=== PATIENT | female | born 1985 | race Caucasian/White ===

== ENCOUNTER → 2023-11-11 09:41 | Outpatient (BNV) | payer BC, SELFPAY | PROVIDERS: PCP Physician Assistant; Referring Provider Physician Assistant; Visit Provider Internal Medicine Medical Oncology | DX: E83.110 Hereditary hemochromatosis (principal) | CPT/HCPCS: 99204; 99443 ==

== ENCOUNTER 2023-12-30 13:15 | Outpatient (REF) | payer BC, SELFPAY ==
[2023-12-30 15:31] LABS: Iron 123 mcg/dL (30-160); Percent Iron Saturation 62 % (15-50); Total Iron Binding Capacity 198 mcg/dL (228-428); Unsaturated Iron Binding 75 ug/dL
[2023-12-30 15:34] LABS: Ferritin 74 ng/mL (10-122)
== END 2023-12-30 13:16 | disposition home or self-care (01) ==
LOC: HO.BBR 13:15
PROVIDERS: Visit Provider Internal Medicine Medical Oncology
DX: E83.110 Hereditary hemochromatosis (principal)
CPT/HCPCS: 36415; 82728; 83540

== ENCOUNTER 2024-01-30 10:10 | Outpatient (REF) | payer BC, SELFPAY ==
[2024-01-30 12:23] LABS: Ferritin 36 ng/mL (10-122); Iron 229 mcg/dL (30-160); Percent Iron Saturation 90 % (15-50); Total Iron Binding Capacity 254 mcg/dL (228-428); Unsaturated Iron Binding < 25 ug/dL
== END 2024-01-30 10:11 | disposition home or self-care (01) ==
LOC: HO.BBR 10:10
PROVIDERS: PCP Physician Assistant; Visit Provider Internal Medicine Medical Oncology
DX: E83.110 Hereditary hemochromatosis (principal)
CPT/HCPCS: 36415; 82728; 83540

== ENCOUNTER 2024-02-25 13:59 | Outpatient (REF) | payer BC, SELFPAY ==
[2024-02-25 15:31] LABS: Iron 100 mcg/dL (30-160); Percent Iron Saturation 47 % (15-50); Total Iron Binding Capacity 212 mcg/dL (228-428); Unsaturated Iron Binding 112 ug/dL
[2024-02-25 15:45] LABS: Ferritin 33 ng/mL (10-122)
== END 2024-02-25 14:00 | disposition home or self-care (01) ==
LOC: HO.BBR 13:59
PROVIDERS: PCP Physician Assistant; Visit Provider Internal Medicine Medical Oncology
DX: E83.110 Hereditary hemochromatosis (principal)
CPT/HCPCS: 36415; 82728; 83540

== ENCOUNTER → 2024-04-15 14:22 | Outpatient (REF) | payer BC, SELFPAY ==
--- NOTE | 2024-04-15 14:24 | CA_ITS ---
Transthoracic Echocardiogram Patient (Last, First, Middle): Kristina Zuniga, Gender: Female Date of : 1985 Age: 38 Procedure Date: 04/15/2024 Procedure Type: Transthoracic Echocardiogram Location: OP Height: 152.4 cm Weight: 49.9 kg BSA: 1.45 m2 Heart Rate: bpm BP: 120 / 76 mmHg Superintendent Nonselling: TO Referring MD: Krish Banuelos MD Symptoms: Irregular heartbeat. Study Quality: Adequate ECG Rhythm: Sinus Conclusions: - The left ventricular systolic function is normal. The calculated ejection fraction is 64% by biplane method. - No obvious valvular pathology seen on this study. Findings Left Ventricle Normal left ventricular cavity size. There is normal left ventricular wall thickness. The left ventricular systolic function is normal. The calculated ejection fraction is 64% by biplane method. There is no evidence of regional wall motion abnormalities. Diastolic function is normal for age. LV peak GLS -20.3%; normal. Right Ventricle Normal right ventricular cavity size and systolic function. Atria Both atria are normal in size. Aortic Valve There is a normal trileaflet aortic valve. There is no aortic valve stenosis. There is no aortic valve regurgitation. Mitral Valve The mitral valve appears normal. There is no mitral valve regurgitation. There is no mitral valve stenosis. Pulmonic Valve The pulmonic valve is likely normal. Tricuspid Valve Normal tricuspid valve structure. There is trace tricuspid valve regurgitation. There is no evidence of pulmonary hypertension. Great Vessels The asc aorta is normal in size. Venous The inferior vena cava is normal in size and collapses greater than 50% with inspiration. Pericardium/Pleural There is a trivial pericardial effusion. Prior Study Comparison No prior study available for comparison. Recommendations, Care & Conclusions No obvious valvular pathology seen on this study. Measurements 2D Linear Measurements IVSd: 0.82 0.6-0.9/0.6-1.0 cm LVIDd: 4.06 3.9-5.3/4.2-5.9 cm LVIDd Index: 2.80 2.4-3.2/2.2-3.1 cm/m2 LVIDs: 2.54 2.0-3.6 cm LVPWd: 0.87 0.7-1.1 cm LA Diam: 3.10 2.7-3.8/3.0-4.0 cm LAIDs Index: 2.14 1.5-2.3 cm/m2 LV Mass: 128.53 67-162/88-224 g LV Mass Index: 88.64 43-95/49-115 g/m2 LVOT Diam: 2.00 3.0+(-)1.3 cm 2D Systolic Function EF 4C: 60.10 >55% EF 2C: 66.90 >55% EF BiP: 63.90 >55% Mitral Valve MV Pk E: 0.77 MV PK A: 0.39 MV Decel Time: 218.00 E/A: 2.00 E'Lateral: 10.90 E'Medial: 7.72 E/E' Med: 9.90 E/E' Lat: 7.00 PHT: 64.00 MVA PHT: 3.44 Decel [place]: 3.52 Aortic Valve AoV Pk Antoine: 1.15 AoV Mn Antoine: 0.82 AoV VTI: 0.24 AoV Pk Grad: 5.00 Aov Mn Grad: 3.00 SARAH Cont.VTI: 2.18 LVOT LVOT Pk Antoine: 0.82 LVOT Mn Antoine: 0.53 LVOT VTI: 0.17 LVOT Pk Grad: 3.00 LVOT Mn Grad: 1.00 LVOT Diam: 2.00 LVOT Area: 3.14 Diastolic Function MV Pk E: 0.77 MV Pk A: 0.39 E/A: 2.00 E'Medial: 7.72 E/E' Med: 9.90 E' Laterial: 10.90 E/E' Lat: 7.00 Right Ventricle TAPSE (mm): 22.60 TVS' Antoine: 11.20 Tricuspid Valve RA Press: 3.00 Great Vessels Aorta Sinus of Valsalva: 2.96 2.0-3.[address] [place]: 2.22 1.7-3.4 cm Ao Asc: 2.50 2.1-3.4 cm Updated in Other Vendor System with Status of Final Antione Carlson MD electronically signed on 04/16/2024 11:41:46 AM with status of Final
== END ==
LOC: HO.CARD 14:22
PROVIDERS: Visit Provider Internal Medicine Medical Oncology
DX: I49.9 Cardiac arrhythmia, unspecified (principal)
CPT/HCPCS: 93306; 93356

== ENCOUNTER → 2024-04-15 14:24 | Outpatient (BNV) | payer BC, SELFPAY | PROVIDERS: Visit Provider Internal Medicine | DX: R94.31 Abnormal electrocardiogram [ECG] [EKG] (principal) | CPT/HCPCS: 93306; 93356 ==

== ENCOUNTER 2024-04-21 14:54 | Outpatient (AMB) | payer BC, SELFPAY ==
[2024-04-21 14:57] VITALS: BP 110/72; PULSE 68; BMI 22.1
--- NOTE | 2024-04-21 14:57 | MHC.OFFVIS ---
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 She has been diagnosed with homozygous hemochromatosis. She has been started on therapeutic phlebotomy. However, there was concern for some palpitations/arrhythmia and hence she has been referred here. She states that she was told to have a cardiac murmur many years ago but nothing was ever evaluated. She had recent echocardiogram which was unremarkable. She feels a sensation of a momentary fluttering and then goes back to normal. Appears to be description for either supraventricular ventricular ectopy. Nothing sustained. Otherwise no documented cardiac issues in the past. No major limitations otherwise. [facility] Medical History (Updated 04/21/24 @ 15:21 by Antione Carlson MD) Hemochromatosis Family History (Updated 04/21/24 @ 15:02 by Ashley Docekry CMA) Paternal Grandmother Leukemia Maternal Grandfather Colon cancer Father Afib Spinal stenosis HTN (hypertension) Hyperlipidemia Mother Hypothyroid HTN (hypertension) Hyperlipidemia Social History (Updated 04/21/24 @ 15:02 by Ashley Dockery CMA) Household Members: Family Alcohol intake: current Comment: social Patient Tobacco Use Status: Never used Tobacco service: No Current occupational status: employed Review of Systems Const Denies chills, Denies daytime sleepiness, Denies fatigue, Denies fever(s), Denies poor appetite, Denies snoring, Denies stops breathing during sleep, Denies weakness, Denies weight gain and Denies weight loss Eyes Denies loss of vision ENT Denies dizziness and Denies hearing loss Card Denies chest pain, Denies irregular heart rhythm, Denies claudication, Denies leg edema, Denies lightheadedness, Denies palpitations, Denies dyspnea on exertion and Denies orthopnea Resp Denies cough, Denies excessive phlegm production, Denies dyspnea on exertion, Denies snoring and Denies wheezing GI Denies abdominal pain, Denies hematochezia, Denies change in bowel habits, Denies nausea and Denies vomiting Denies urinary frequency and Denies dysuria Musc Denies arthralgias, Denies muscle weakness, Denies numbness and Denies other Skin/Breast Denies nail changes and Denies rash Neuro Denies Abnormal speech present, Denies dizziness, Denies loss of vision, Denies memory loss, Denies numbness and Denies weakness Psych Denies depression and Denies memory loss Endo Denies fatigue and Denies palpitations Anthony/Lymph Denies easy bruising Aller/Immun Denies wheezing Physical Exam Vital Signs: Last Vital Signs Pulse 68 04/21/24 14:57 BP 110/72 04/21/24 14:57 BMI result Body Mass Index 22.1 Const General: comfortable and no acute distress Orientation/consciousness: patient oriented x3 HEENT Other: Unremarkable Head: Yes normal to inspection Neck Neck: Yes normal visual inspection Chest Chest palpation & inspection: normal inspection of the chest Resp Auscultation: clear to auscultation bilaterally Cardio Palpation: normal PMI Heart sounds: S1 normal heart sound present, S2 normal heart sound present, no gallops, no murmurs and no rubs GI Palpation (GI): Soft to palpation Back/Spine/Pelvis Other: unremarkable Skin General skin exam: no rashes or lesions noted Neuro General: patient oriented x3 Speech: No Abnormal speech present Extrem General: Yes normal to inspection Psych Mental Status: mental status grossly normal Office Procedures EKG Details: EKG with underlying sinus rhythm at 68/Min with sinus arrhythmias; rightward axis; no significant ST-T changes and otherwise unremarkable[place] [id number]-[id number], Complete Assessment & Plan Assessment & Plan (1) Palpitation: Code(s): R00.2 - Palpitations Category: Medical Plan Baseline EKG shows sinus rhythm and sinus arrhythmia. In the echocardiogram, normal LVEF, 64% with no wall motion abnormalities. Peak global longitudinal strain. No significant valvular findings. Overall, possible supraventricular/ventricular ectopy; doubt any other arrhythmias. We discussed pathophysiology of the above and natural course. We can do a Holter monitor for further evaluation. She agrees for a 14 day Holter. In fact, as she felt some palpitations few days after the therapeutic phlebotomy, she can actually wear this monitor during the procedure and after. Otherwise, may proceed with treatment as planned. We will follow-up after she completes the Holter. Orders: Orders ECG 14 day holter monitor Today R00.2 - Palpitations Coding Level of Care Code New Pt Level 3 (95304) Diagnoses Palpitation R00.2 CPT Codes EKG - CPT: 94681-[id number], Complete ([id number])
== END 2024-04-21 15:29 | disposition home or self-care (01) ==
PROVIDERS: PCP Physician Assistant; Visit Provider Internal Medicine
DX: R00.2 Palpitations (principal); I49.9 Cardiac arrhythmia, unspecified
CPT/HCPCS: 93010; 99213

== ENCOUNTER → 2024-04-21 14:54 | Outpatient (BNVA) | payer BC, SELFPAY | PROVIDERS: PCP Physician Assistant; Visit Provider Internal Medicine | DX: R00.2 Palpitations (principal) | CPT/HCPCS: 93005 ==

== ENCOUNTER 2024-04-23 11:23 | Outpatient (REF) | payer BC, SELFPAY ==
[2024-04-23 13:09] LABS: Iron 167 mcg/dL (30-160); Percent Iron Saturation 73 % (15-50); Total Iron Binding Capacity 229 mcg/dL (228-428); Unsaturated Iron Binding 62 ug/dL
[2024-04-23 13:22] LABS: Ferritin 15 ng/mL (10-122)
== END 2024-04-23 11:24 | disposition home or self-care (01) ==
LOC: HO.BBR 11:23
PROVIDERS: Visit Provider Internal Medicine Medical Oncology
DX: E83.110 Hereditary hemochromatosis (principal)
CPT/HCPCS: 36415; 82728; 83540

== ENCOUNTER 2024-05-25 13:14 | Outpatient (REF) | payer BC, SELFPAY ==
[2024-05-25 14:50] LABS: Iron 30 mcg/dL (30-160); Percent Iron Saturation 13 % (15-50); Total Iron Binding Capacity 233 mcg/dL (228-428); Unsaturated Iron Binding 203 ug/dL
[2024-05-25 15:05] LABS: Ferritin 6 ng/mL (10-122)
== END 2024-05-25 13:15 | disposition home or self-care (01) ==
LOC: HO.BBR 13:14
PROVIDERS: PCP Physician Assistant; Visit Provider Internal Medicine Medical Oncology
DX: E83.110 Hereditary hemochromatosis (principal)
CPT/HCPCS: 36415; 82728; 83540

== ENCOUNTER 2024-07-27 14:37 | Outpatient (REF) | payer BC, SELFPAY | END 2024-07-27 14:38 | disposition home or self-care (01) | LOC: HO.BBR 14:37 | PROVIDERS: PCP Physician Assistant; Visit Provider Internal Medicine Medical Oncology | DX: Z13.89 Encounter for screening for other disorder (principal) ==

== ENCOUNTER 2024-08-09 13:48 | Outpatient (REF) | payer BC, SELFPAY ==
[2024-08-09 14:09] LABS: MANUAL DIFF FLAG NO
[2024-08-09 14:10] LABS: Basophils Percent Auto 0.4 % (0-2); Eosinophils Absolute Auto 0.1 X10*3/uL (0.0-0.4); Eosinophils Percent Auto 1.2 % (0-4); Hematocrit 34.3 % (37.0-47.0); Hemoglobin 10.9 g/dl (12.0-16.0); Imm Gran Abs Auto 0.01 X10*3/uL (0.00-0.03); Imm Gran Pct Auto 0.2 % (0.0-0.4); Lymphocytes Absolute Auto 1.4 X10*3/uL (1.2-4.9); Lymphocytes Percent Auto 24.1 % (20-40); Mean Corpuscular HGB Conc 31.8 g/dl (31.0-35.0); Mean Corpuscular Hemoglobin 26.9 pg (27.0-33.0); Mean Corpuscular Volume 84.7 fL (80.0-98.0); Mean Platelet Volume 10.3 fL (9.4-12.3); Monocytes Absolute Auto 0.4 X10*3/uL (0.1-1.2); Monocytes Percent Auto 7.4 % (2-11); Neutrophils Absolute Auto 3.8 x10*3/uL (2.0-8.3); Neutrophils Percent Auto 66.7 % (45-73); Platelet Count 207 X10*3/uL (160-400); Red Blood Count 4.05 X10*6/uL (4.20-5.50); Red Cell Distribution Width 13.7 % (11.0-16.0); White Blood Count 5.6 X10*3/uL (4.8-10.8)
[2024-08-09 14:46] LABS: Iron 35 mcg/dL (30-160); Percent Iron Saturation 15 % (15-50); Total Iron Binding Capacity 229 mcg/dL (228-428); Unsaturated Iron Binding 194 ug/dL
[2024-08-09 14:59] LABS: Ferritin 7 ng/mL (10-250)
== END 2024-08-09 13:49 | disposition home or self-care (01) ==
LOC: HO.BBR 13:48
PROVIDERS: PCP Physician Assistant; Visit Provider Internal Medicine Medical Oncology
DX: E83.119 Hemochromatosis, unspecified (principal)
CPT/HCPCS: 36415; 82728; 83540; 85025

== ENCOUNTER 2024-09-03 13:05 | Outpatient (REF) | payer BC, SELFPAY ==
--- OUTSIDE RECORDS SUMMARY | 2024-09-03 14:55 | XMS_ITS | Continuity of Care Document ---
Author Organization [facility] Rolando campos [facility] Address [address] [place] [address]- Care Team Providers Care Production Line Worker Name Role Phone Amena Spicer MD Primary Care Physician [id number] Date(s[facility] 07/14/24 - 08/13/24 [facility] Rolando Condons [facility] [address] [place] [address]- [place] Encounter Type: Triage Allergies, Adverse Reactions, Alerts Substance Criticality Severity Reaction Reaction Severity Status sulfa drugs Active Medications ZyrTEC 10 mg oral tablet 1 tablet = 10 mg, By Mouth, Daily, # 30 tablet, 0 Refills, Maintenance, 12/15/23 10:13:00 AM EDT, Tablet, Partial fill upon patient request if the prescription is for a schedule II opioid drug. Start Date: 12/15/23 Status: Ordered Quantity: 30.0 Unit: tablet Repeat number: 1 Patient Care team information Care Team Personnel Name: Amena Spicer MD Position: [facility] Outreach Member Role: PCP Address: [address] [place] [address] [place] [address]- Telecom: Insurance Providers Guarantor name: NA Health Plan Information #: 1 Payer: HMO BLUE IN NETWORK Member Number: NA Policy Number: NA Group Number: NA
--- OUTSIDE RECORDS SUMMARY | 2024-09-03 14:55 | XMS_ITS | Continuity of Care Document ---
Author Organization [facility] Address [address] [place] [address]- Care Team Providers Care Guard Dance Hall Name Role Phone Amena Spicer MD Primary Care Physician Encounter [facility] ACCT R [id number] Date(s): 06/25/24 - 08/14/24 [facility] [address] [place] [address] us Attending Physician: Becky Gatica MD Encounter Type: Pre Office Visit Allergies, Adverse Reactions, Alerts Substance Criticality Severity [...] Team Personnel Name: Amena Spicer MD Position: [facility] Outreach Member Role: PCP Address: [address] [place] [address] [address] [place], [place] [address] Telecom: Insurance Providers Guarantor name: NA Health Plan Information #: 1 Payer: HMO BLUE IN NETWORK Member Number: [id number] Policy Number: NA Group Number: NA Health Plan Information #: 2 Payer: HMO BLUE IN NETWORK Member Number: [id number] Policy Number: NA Group Number: NA
== END 2024-09-03 13:06 | disposition home or self-care (01) ==
LOC: HO.BBR 13:05
PROVIDERS: PCP Physician Assistant; Visit Provider Internal Medicine Medical Oncology
DX: Z13.89 Encounter for screening for other disorder (principal)

== ENCOUNTER 2024-10-08 15:04 | Outpatient (REF) | payer BC, SELFPAY ==
--- OUTSIDE RECORDS SUMMARY | 2024-10-08 17:13 | XMS_ITS | Continuity of Care Document ---
Author Organization [facility] Address [address] [place] [address]- Care Team Providers Care Technical Training Coordinator Name Role Phone Amena Spicer MD Primary Care Physician Encounter 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
--- OUTSIDE RECORDS SUMMARY | 2024-10-08 17:13 | XMS_ITS | Continuity of Care Document ---
Author Organization [facility] Address [address] [place] [address]- Care Team Providers Care Junior Web Designer Name Role Phone Amena Spicer MD Primary Care Physician Encounter [facility] [id number] Date(s): 07/21/24 - 09/23/24 [facility] [address] [place] [address] us Attending Physician: Becky Gatica MD Referring Physician: Amena Spicer MD Encounter Type: Pre Office Visit Allergies, [...] Team Personnel Name: Amena Spicer MD Position: [facility] Outreach Member Role: PCP Address: [address] [place] [address] [address] [place], [place] [address] Telecom: Insurance Providers Guarantor name: NA Health Plan Information #: 1 Payer: HMO BLUE IN NETWORK Member Number: [id number] Policy Number: NA Group Number: NA Health Plan Information #: 2 Payer: HMO BLUE IN NETWORK Member Number: [id number] Policy Number: NA Group Number: NA
== END 2024-10-08 15:05 | disposition home or self-care (01) ==
LOC: HO.BBR 15:04
PROVIDERS: PCP Physician Assistant; Visit Provider Internal Medicine Medical Oncology
DX: Z13.89 Encounter for screening for other disorder (principal)

== ENCOUNTER 2025-02-10 15:07 | Outpatient (REF) | payer BC, SELFPAY ==
--- OUTSIDE RECORDS SUMMARY | 2025-02-10 15:10 | XMS_ITS | Data Portability ---
Author Organization [facility], [facility], [facility] Address [address] [address] Assessment Encounter Date Assessment Date Assessment LastModified by Organization Details LastModified Time 09/17/2016 09/17/2016 31 yo presents for preconception consultation with her . Patient has regular periods. Reviewed normal menstrual cycle, timing of ovulation and intercourse. Discussed option of using ovulation predictor kits. Reviewed use of preconception folic acid, diet, exercise, and avoidance of alcohol and other exposures. History of anorexia/bulimia , which she has overcome the past few months in anticipation of conceiving. She says she feels well and strong to avoid resuming disordered eating behaviors. Discussed importance of normal BMI in ovulation and healthy . Discussed use of medications in . Discussed personal health risks and genetic history that might impact . changes renetta litter. They have no upcoming travel planned to endemic zika areas. Reviewed recommendation to follow up if they have not conceived after 12 months of trying. Patient and plan to move to [facility] in the near future. All questions answered. 30 minutes spent, >50% of visit counseling. [email or web address] Not available 09/17/2016 12:23:36 Plan of Treatment Reminders Order Date Submit Date Provider Last Modified By Organization Details Last Modified Time Details Appointments None recorded. Lab maternal screen, first trimester , serum or plasma - KRYSTA 2016 017 [facility] (Lab), [address], [place], [address], 7 16:43:59 CBC 2016 017 [facility] (Lab), [address] [place] [address], [address], 7 16:47:43 rubella igg Ab screen, serum 2016 017 [facility] (Lab), [address] [place] [address], [address], 7 17:55:15 RPR (rapid plasma reagin), serum 2016 017 [facility] (Lab), [address] [place] [address], [address], 7 06:36:00 HBsAg (hepatiti s B surface Ag), serum 2016 017 [facility] (Lab), [address] [place] [address], [address], 7 17:46:48 CT, DNA, qual, PCR, unspecifi ed specimen 2016 017 [facility] (Lab), [address] [place] [address], [address], 7 10:40:37 NG, DNA, qual, PCR, unspecifi ed specimen 2016 017 [facility] (Lab), [address] [place] [address], [address], 7 10:40:38 Pap test, slide(s), cervical 2016 017 [facility] (Lab), [address] [place] [address], [address], 7 12:47:01 urinalysi s, complete 2016 017 [facility] (Lab), [address] [place] [address], [address], 7 22:31:37 culture, urine 2016 017 [facility] (Lab), [address] [place] [address], [address], 7 07:01:50 HIV (1+2) antibodie s, EIA, serum, reflex HIV-1 western blot (WB) 2016 017 [email or web address] [facility] (Lab), [address] [place] [address], [address], 7 08:46:58 cf (cystic fibrosis) profile 2016 017 [facility] (Lab), [address] [place] [address], [address], 7 07:29:51 abo group + rh type, blood 2016 017 [facility] (Lab), [address] [place] [address], [address], 7 16:56:17 antibody screen, serum or plasma 2016 017 [facility] (Lab), [address] [place] [address], [address], 7 16:56:17 HPV DNA, high-risk 2016 017 [facility] (Lab), [address] [place] [address], [address], 7 14:34:27 hemoglobi nopathy profile, blood 2016 017 [facility] (Lab), [address] [place] [address], [address], 7 17:47:56 vzv (varicell a-zoster) Ab, serum 2016 017 [facility] (Lab), [address] [place] [address], [address], 7 15:41:21 Referral None recorded. Procedures None recorded. Surgeries None recorded. Imaging US, obstetric - unable to hear heartbeat in office 2016 017 [email or web address] [facility] (Same Day Appointment - Imaging), [address] [place] [address], [address], 7 14:58:56 US, obstetric , nuchal transluce ncy 2016 017 [email or web address] Not available 7 16:46:32 US, obstetric , limited - Viability and dating please. Vaginal bleeding/ spotting in . 2016 017 cstepanian [facility] (Same Day Appointment - Imaging), [address] [place] [address], [address], 7 17:40:27 Medication Orders None recorded. Patient TargetsNo targets recorded. Patient Instructions Encounter Date Encounter Id Patient Instructions Last Modified By Organization Details Last Modified Time 10/25/2016 [id number] educational handout [email or web address] Not available 10/25/2016 11:39:16 Reason for Referral None Reported. Results Created Date Observation Date Name Description Value Unit Range Abnormal Flag Note LastModifiedBy Organization Detail LastModifiedTime 10/26/19 17 10/25/2016 CBC WBC 5.97 10(9) /L 4.0-10 .80 normal Not Available [address], [address], 10/25/2016 16:47:43 10/26/1910/25/2016 CBC RBC 4.03 10(12 )/L 4.20-5 .40 low Not Available [address], [address], 10/25/2016 16:47:43 10/26/19 17 10/25/2016 CBC HGB 13.0 g/dL 12.0-1 6.0 normal Not Available [address], [address], 10/25/2016 16:47:43 10/26/19 17 10/25/2016 CBC HCT 38.2 % 35-48 normal Not Available [address], [address], 10/25/2016 16:47:43 10/26/19 17 10/25/2016 CBC MCV 94.8 fL 81-99 normal Not Available [address], [address], 10/25/2016 16:47:43 10/26/19 17 10/25/2016 CBC MCH 32.3 pg 26.0-3 3.0 normal Not Available [address], [address], 10/25/2016 16:47:43 10/26/19 17 10/25/2016 CBC MCHC 34.0 g/dL 32.0-3 6.0 normal Not Available [address], [address], 10/25/2016 16:47:43 10/26/19 17 10/25/2016 CBC platelet 183 10(9) /L 150-35 0 normal Not Available [address], [address], 10/25/2016 16:47:43 10/26/1910/25/2016 CBC RDW-CV 11.1 % 11.5-1 4.5 low Not Available [address], [address], 10/25/2016 16:47:43 10/26/1910/25/2016 abo group + rh type, blood blood type O normal Not Available [address], [address], 10/25/2016 16:56:17 10/26/19 17 10/25/2016 abo group + rh type, blood Rh status POSITI VE normal Not Available [address], [address], 10/25/2016 16:56:17 10/26/19 17 10/25/2016 antib sylvia scree n, serum or plasm a antibody screen NEGATI VE normal Not Available [address], [address], 10/25/2016 16:56:17 10/26/19 17 10/25/2016 abo group + rh type, blood blood type O normal Not Available [address], [address], 10/25/2016 16:56:18 10/26/19 17 10/25/2016 abo group + rh type, blood Rh status POSITI VE normal Not Available [address], [address], 10/25/2016 16:56:18 10/26/19 17 10/25/2016 HBsAg (hepa titis B surfa ce Ag), serum HBsAg cuauhtemoc Negati ve negati ve normal Not Available [address], [address], 10/25/2016 17:46:48 10/26/19 17 10/25/2016 rubel la igg Ab scree n, serum rubella-R Positi ve negati ve normal Not Available [address], [address], 10/27/2016 15:41:20 10/26/19 17 10/25/2016 urina lysis , compl ete color YELLOW yellow normal Not Available [address], [address], 10/25/2016 22:31:37 10/26/19 17 10/25/2016 urina lysis , compl ete turbidity CLOUDY clear normal Not Available [facility] [address] [place], [address], 10/25/2016 22:31:37 10/26/19 17 10/25/2016 urina lysis , compl ete SG 1.013 1.002- 1.030 normal Not Available [facility] [address] [place], [address], 10/25/2016 22:31:37 10/26/1910/25/2016 urina lysis , compl ete pH 7.0 5-8 normal Not Available [address], [address], 10/25/2016 22:31:37 10/26/19 17 10/25/2016 urina lysis , compl ete albumin NEGATI VE mg/dL negati ve normal Not Available [address], [address], 10/25/2016 22:31:37 10/26/19 17 10/25/2016 urina lysis , compl ete glucose NEGATI VE mg/dL negati ve normal Not Available [facility] [address] [place], [address], 10/25/2016 22:31:37 10/26/19 17 10/25/2016 urina lysis , compl ete ketone NEGATI VE mg/dL negati ve normal Not Available [facility] [address] [place], [address], 10/25/2016 22:31:37 10/26/19 17 10/25/2016 urina lysis , compl ete bile NEGATI VE mg/dL negati ve normal Not Available [address], [address], 10/25/2016 22:31:37 10/26/1910/25/2016 urina lysis , compl ete blood NEGATI VE mg/dL negati ve normal Not Available [address], [address], 10/25/2016 22:31:37 10/26/1910/25/2016 urina lysis , compl ete WBC esterase NEGATI VE brady/u L negati ve normal Not Available [address], [address], 10/25/2016 22:31:37 10/26/1910/25/2016 urina lysis , compl ete nitrite NEGATI VE negati ve normal Not Available [address], [address], 10/25/2016 22:31:37 10/26/1910/25/2016 urina lysis , compl ete WBC 0-5 /hpf 0-5 normal Not Available [address], [address], 10/25/2016 22:31:37 10/26/1910/25/2016 urina lysis , compl ete RBC 0-5 /hpf 0-5 normal Not Available [facility] [address] [place], [address], 10/25/2016 22:31:37 10/26/1910/25/2016 urina lysis , compl ete epith cells NONE /hpf 0-5 normal No cells nor forme d eleme nts seen. No cells nor forme d eleme nts seen. Not Available [address], [address], 10/25/2016 22:31:37 10/26/19 17 10/26/2016 RPR (rapi d plasm a reagi n), serum syphilis serol NON-RE ACTIVE non-re act normal Not Available [facility] [address] [place], [address], 10/27/2016 15:41:19 10/26/19 17 10/26/2016 cultu re, urine urine culture < 50,000 organi sms/ml urogen ital fany Not Available [facility] [address] [place], [address], 10/26/2016 13:39:37 10/26/19 17 10/27/2016 vzv (vari lee -zost er) Ab, serum varicella Z Ab 1.15 index >=1.10 normal < or= 0.90 Negat zoraida - No VZV IgG Antib sylvia detec javon 0.91 -1.09 Equiv ocal > or= 1.10 Posit zoraida - VZV IgG Antib sylvia detec javon A posit zoraida resul t indic ates that the patie nt has antib sylvia to VZV but does not diffe renti ate betwe en infec tion (acti ve or past) and vacci natio n. The clini monique diagn osis must be inter prete d in conju nctio n with the clini monique signs and sympt oms of the patie nt. This assay relia philip measu res immun ity due to previ ous infec tion but may not alway s be sensi tive enoug h to detec t antib odies induc ed by vacci natio n. Thus, a negat zoraida resul t in a vacci nated indiv idual does not neces saril y indic ate susce ptibi lity to VZV infec tion. Test Perfo rmed by Lalit Moses, [facility], [address] , [place], [place] Eriberto Marcum M.D., Ph.D. , [facility] , CLIA [id number] Not Available [facility] [address], [place], [address], 10/27/2016 15:41:20 10/26/19 17 10/27/2016 HIV (1+2) antib odies , EIA, serum , refle x HIV-1 weste rn blot (WB) HIV-1/2 EIA Non-re active non-re active normal HIV-1 antig en and HIV-1 /HIV- 2 antib odies were not detec javon. There is no labor atory evide nce of HIV infec tion. PLEAS E NOTE This infor matio n has been discl osed to you from recor ji whose confi denti ality may be prote cted by state law. If your state requi res such prote ction , then the state law prohi bits you from aga chen furth er discl osure of the infor matio n witho ut the speci fic writt en conse nt of the perso n to whom it perta ins, or as other [place] permi tted by law. A gener al autho rizat ion for the relea se of medic al or other infor matio n is NOT suffi cient for this purpo se. The perfo rmanc e of this assay has not been clini toby valid ated in patie nts less than 2 years old. For addit ional infor matio n, russ e refer to http: //[facility] catguy n.que stdia gnost ics.c om/fa q/FAQ 106 Not Available [facility] [address], [place], [address], 10/27/2016 18:21:50 10/26/19 17 10/28/2016 CT, DNA, qual, PCR, unspe cifie d speci men chlamydia Ag NEGATI VE negati ve normal Test perfo rmed by [employer] javon Ampli ficat ion. Test perfo rmed by [employer]i ficat ion. Not Available [facility] [address] [place], [address], 10/28/2016 10:40:37 10/26/19 17 10/28/2016 NG, DNA, qual, PCR, unspe cifie d speci men N. gonorrhoeae NEGATI VE negati ve normal Test perfo rmed by [employer] Ampli ficat ion. Test perfo rmed by [employer] jav[employer] Ampli ficat ion. Not Available [address], [address], 10/28/2016 10:40:38 10/26/19 17 10/28/2016 hemog lobin opath y profi le, blood RBC 3.96 mill/ uL 3.80-5 .10 normal Not Available [address], [address], 10/28/2016 17:47:56 10/26/19 17 10/28/2016 hemog lobin opath y profi le, blood HGB 13.3 g/dL 11.7-1 5.5 normal Not Available [address], [address], 10/28/2016 17:47:56 10/26/19 17 10/28/2016 hemog lobin opath y profi le, blood HCT 37.9 % 35.0-4 5.0 normal Not Available [address], [address], 10/28/2016 17:47:56 10/26/19 17 10/28/2016 hemog lobin opath y profi le, blood MCV 95.8 fL 80.0-1 00.0 normal Not Available [address], [address], 10/28/2016 17:47:56 10/26/19 17 10/28/2016 hemog lobin opath y profi le, blood MCH 33.5 pg 27.0-3 3.0 high Not Available [address], [address], 10/28/2016 17:47:56 10/26/19 17 10/28/2016 hemog lobin opath y profi le, blood RDW 11.4 % 11.0-1 5.0 normal Not Available [address], [address], 10/28/2016 17:47:56 10/26/19 17 10/28/2016 hemog lobin opath y profi le, blood hgba 94.2 % >96.0 low Not Available [address], [address], 10/28/2016 17:47:56 10/26/19 17 10/28/2016 hemog lobin opath y profi le, blood hemoglobin F 3.1 % <2.0 high Not Available [address], [address], 10/28/2016 17:47:56 10/26/19 17 10/28/2016 hemog lobin opath y profi le, blood hemoglobin A2 2.7 % 1.8-3. 5 normal Not Available [address], [address], 10/28/2016 17:47:56 10/26/19 17 10/28/2016 hemog lobin opath y profi le, blood hgbep interpret SEE BELOW () normal PATHO LOGIS T INTER PRETA TION: MILD ELEVA TION IN HBF There is a minor incre ase in HbF. A hered itary cause is unlik orville as it is less than 5%. There are numer ous cause s for acqui red incre ases in HbF. It may occur in stre ss eryth ropoi esis from any cause as well as in vario us types of hemol ytic anemi as, diabe tera melli tus, thyro id disea se, and durin g antic onvul floresita drug thera py, aplas tic anemi a, perni cious anemi a, in all types of leuke mias, multi ple myelo ma, and metas tatic cance r in the marro w. Synth esis of HbF incre ases in about 25% of women durin g pregn madeleine. Most signi fican t durin g 4th month of pregn madeleine with an incre ase usual ly less than 5%. Resul ts were revie wed and inter prete d by Dwaine Jarvis M.D. If addit ional infor flakita parveen is russ briggs e call [phone]. Test Perfo rmed by [facility] , Lalit chris, [facility], [address] [place], [place] Coralri warner Marcum M.D., Ph.D. 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 CERVI X/END OCERV IX FINAL DIAGN OSIS NEGAT ZORAIDA FOR INTRA EPITH ELIAL LESIO N OR MALIG JOSE . HPV DNA testi ng for high risk subty pes will be perfo rmed at the reque st of order ing physi hemal and the resul t will be repor javon in an adden dum. Roxy Caal Rosanne on, CT( CP) Repor t Elect beatrice post This Pap test was scree rosa isela using the compu teriz ed ThinP rep Imagi ng Syste m, then manua lly revie wed and inter prete d. CLINI MONIQUE HISTO RY MENST RUAL STATU S : OTHER PREVI OUS ABNOR MAL: NOT GIVEN CLINI MONIQUE HISTO RY OTHER : HPV TESTI NG CUAUHTEMOC PAP QUEST BETHE SDA ADEQU ACY:S ATISF ACTOR Y FOR INTER PRETA TION TRANS FORMA TION ZONE: Endoc ervic al/tr ansfo rmati on zone compo nent prese nt ----- ----- ----- ----- ----- ----- ----- ----- ----- ----- ----- ----- ----- ----- ----- ----- ----- ----- -- Bhumi d ROSANNE ON CT( CP),L IS 11/03 1244 ----- ----- ----- ----- ----- ----- ----- ----- ----- ----- ----- ----- ----- ----- ----- ----- ----- ----- -- END OF REPOR T Not Available [address], [address], 11/03/2016 12:47:01 10/26/1911/04/2016 HPV DNA, high- risk HPV 30 neg Negati ve negati ve normal Not Available [facility] [address], [place], [address], 11/04/2016 14:34:27 10/26/1910/25/2016 pap, LB + HR 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 [address] PAGE 1 RUN TIME: 1348 Speci men Inqui ry RUN USER: MEDIT ECH ----- ----- ----- ----- ----- ----- ----- ----- ----- ----- ----- ----- ----- ----- ----- ----- ----- ----- -- RUBENE NT: JOE CASEY 169 LOC: [facility] U #: [id number] AGE/S X: 31/F ROOM: RE10/[address]: Ham Schneider N.P. : [birth year] BED: DIS: STATU S: REG REF TLOC: ----- ----- ----- ----- ----- ----- ----- ----- ----- ----- ----- ----- ----- ----- ----- ----- ----- ----- -- SPEC #: [id number] RECD: 10/25- 213 STATU S: SOUT REQ #: [id number] WU: 10/25- SUBM DR: Ham Schneider N.P. 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 CERVI X/END OCERV IX ADDEN DUM Adden dum #1 Enter ed: 11/04-1 544 ADDEN DUM TO REPOR T: HPV mRNA E6/E7 : NEGAT ZORAIDA (Not detec javon) This assay detec ts E6/E7 viral messe nger RNA (mRNA ) from 14 high- risk HPV types : (16,1 8,31, 33,35 ,39,4 5,51, 52,56 ,58,5 9,66, 68) This test was perfo rmed using the Aptim a HPV Assay ([employer]). Tejal GUSTAFSON CT( CP),G 11/05 1347 ----- ----- ----- ----- ----- ----- ----- ----- ----- ----- ----- ----- ----- ----- ----- ----- ----- ----- -- FINAL DIAGN OSIS NEGAT ZORAIDA FOR INTRA EPITH ELIAL SAMANTHA Eden OR MARIO ALBERTO GARCIA . HPV DNA testi ng for high risk subty pes [facility] and the resul t will be repor jvaon in an adden dum. Roxy Mejai on, CT( CP) Repor t Elect beatrice post This Pap test was scree rosa isela using the compu teriz ed ThinP rep Imagi ng Systphil m, then rita edwards and inter pretphil d. REBECCA PARKER ON NEXT PAGE ----- ----- ----- ----- ----- ----- ----- ----- ----- ----- ----- ----- ----- ----- ----- ----- ----- ----- -- RUN DATE: 11/05 [place] [address] PAGE 2 RUN TIME: 1348 Speci men Inqui ry RUN USER: DEE CRISTOBAL ----- ----- ----- ----- ----- ----- ----- ----- ----- ----- ----- ----- ----- ----- ----- ----- ----- ----- -- SPEC #: [id number] PATIE NT: GIULIA THOMAS QUYENJILLIAN A #[id number] (Cont inued ) ----- ----- ----- ----- ----- ----- ----- ----- ----- ----- ----- ----- ----- ----- ----- ----- ----- ----- -- CLINI MONIQUE HISTO RY MENST RUAL STATU S : OTHER PREVI OUS ABNOR MAL: NOT GIVEN CLINI MONIQUE HISTO RY OTHER : HPV TESTI NG CUAUHTEMOC PAP QUEST BETHE SDA ADEQU ACY:S ATISF ACTOR Y FOR INTER PRETA TION TRANS FORMA TION ZONE: Endoc shantel al/david mazariegosfo rmati on zone compo berenice amaya nt ----- ----- ----- ----- ----- ----- ----- ----- ----- ----- ----- ----- ----- ----- ----- ----- ----- ----- -- Bhumi d ROSANNE ON CT( CP),L IS 11/03 1244 ----- ----- ----- ----- ----- ----- ----- ----- ----- ----- ----- ----- ----- ----- ----- ----- ----- ----- -- END OF REPOR T Not Available [facility] [address], [place], [address], 11/05/2016 13:49:18 10/26/19 17 10/25/2016 US, obste tric, limit ed No observ ation record ed. [email or web address] [facility] (Same Day Appointment - Imaging) [address], [place], [address], 11/08/2016 16:00:13 12/03/19 17 12/02/2016 US, obste tric, nucha l trans lucen cy No observ ation record ed. [email or web address] Not Available 2016 16:46:20 12/04/19 17 12/02/2016 US, obste tric No observ ation record ed. [email or web address] Not Available 2016 10:01:08 12/06/19 17 11/29/2016 US, obste tric, 1st trime ster Patien t Name: QUYEN LANDEROS [address] [place] [address] Dr: Park Pascal M.D. REG CLI [address]: Park Pascal M.D. Exam Date/T salvatore: 1456 ------ ------ ------ ------ ------ ------ ------ ------ ------ ------ ------ ------ ------ -- Exam Number : [id number] RESPON SIBLE INTERP RETER: Madiha unger M.D. - YEIMY ID: ROSA EXAMIN ATION: OB US<14W K CMPL SGL/1S T FETUS CLINIC AL INDICA TION: 31-yea r-old pregna nt female at 13 weeks 2 days presen ting with no heartb eat in office . TECHNI QUE: Transa bdomin al obstet rical sonogr aphy, 1st trimes ter. COMPAR YESENIA: Ob ultras ound dated 2016. FINDIN GS: The gestat ional age based on the LMP is 13 weeks 2 days. Gestat ional sac/Fe al pole: Presen t. Mean crown- rump length measur ement (7.5 cm): corres ponds with a 13 weeks 4 days gestat ion. This does corres pond with the estima javon gestat ional age based on the patien t's LMP. Yolk sac: Presen t. heart rate: 153 bpm MATERN AL STRUCT URES: Uterus : There is a 4.6 x 2.7 x 3.2 cm anteri or intram ural fibroi d. Ovarie s: The right ovary is normal and measur es 2.7 cm in sagitt al by 1.7 cm in AP by 1.3 cm in transv erse. The left ovary is normal and measur es 2.5 cm in sagitt al by 1.1 cm in AP by 2.4 cm in transv erse. Other: There is no free fluid in the pelvis . IMPRES JOSE: Single ton intrau terine pregna ncy with estima javon gestat ional age of 13 weeks 4 days by crown- rump length . This is concor dant the patien t's estima javon gestat ional age of 13 weeks 2 days. The sonogr apher report ed these findin gs to Charline Moreno RN on 017 at 3:30 p.m.. I, the attend ing physic ever, attest that I have perfor med and/or superv ised the reside nt for the renteria and critic al compon ents of this proced ure. I have person ally review ed the images pertin ent to this examin ation and agree with the interp retati on. Dictat ed: 2016 7:43 AM Report ID: [id number] Report ed By: Veto Pretty M.D. (R ) Yes [email or web address] [facility] (Radiology) [address] [facility], [place], [address], 12/05/2016 17:39:51 Result Notes None recorded. Problems Name Problem SNOMED Code Status Onset Date Resolution Date Notes Provider Name and Address Organization Details Recorded Time Pregnanc y 13115560 Completed 201612/11/2016 Sujatha smith [facility] 7 09:56:32 Anorexia nervosa 13746229 Completed Sujatha smith [facility] 7 09:56:29 History of bulimia nervosa [id number] Completed stopped restrict ing and purging in August 2016 when trying to conceive . [facility] ed her to see a therapis t Sujatha smith [facility] 7 09:56:29 Problem Notes None recorded. Medical Equipment None Reported. Allergies Allergen ID Allergen Name Allergen Category Reaction Reaction Severity Criticality Documentation Date Start Date Code Code System Note Provider Name and Address Organization Details Recorded Time 741811 Product containin g penicilli n (product) medicatio n rash Not available Not available 09/17/2016 70681 [id number] SNOMED Neva smith (Jamie) [facility] 7 10:38:43 210282 amoxicill in medicatio n rash Not available Not available 09/17/2016 723 RxNorm Neva smith (Jamie) [facility] 7 10:38:51 216858 adhesive environme nt,medica tion rash Not available Not available 09/17/2016 36159 UNK Neva smith (Jamie) [facility] 7 10:38:59 [id number] Bactrim medicatio n rash Not available Not available 09/17/2016 27015 9 RxNorm Neva smith (Jamie) [facility] 7 10:39:10 Medications Name Sig Start Date Stop Date Status Note LastModified by Organization Details LastModified Time biotin active Not Available Not Availa ble Not Available active Not Available Not Avai lable Not Available Vitals Date Recorded Body weight Body height Body mass index (BMI) Systolic And Diastolic Provider Name and Address Organization Details Last Updated DateTime 09/17/2016 28296.35 g 152.4 cm 21.9 kg/m2 120/70 mm[Hg] Neva Jones (Jamie) [facility] 09/17/2016 10:38:15 Date Recorded Body height Body weight Body mass index (BMI) Systolic And Diastolic Provider Name and Address Organization Details Last Updated DateTime 10/25/2016 152.4 cm 37536.714 92 g 22.7 kg/m2 122/60 mm[Hg] Jesusita Lin [facility] 10/25/2016 08:55:32 Date Recorded Body height Body weight Systolic And Diastolic Provider Name and Address Organization Details Last Updated DateTime 11/29/2016 152.4 cm 31338.0844 g 118/78 mm[Hg] Neva Jones (Jamie) [facility] 11/29/2016 14:21:03 Social History Question Answer Notes LastModified by Xetal Details LastModified Time Tobacco Smoking Status Former Smoker quit 3 years ago Neva smith (Jamie) [facility] 09/17/2016 10:41:30 What Type Of Diet Are You Following? REGULAR Very Healthy/ No Red Meat Information not available 09/17/2016 Have You Ever Had Violence Or Abuse Directed At You? No Information not available 09/17/2016 Exercise Yes Information no t available 09/17/2016 Marital Status amelcynthia Informatio n not available 09/17/2016 Seat Belts Used Routinely Yes Information not available 09/17/2016 Are You Sexually Active? Yes Information not available 09/17/2016 Sex: Unknown Functional Status Question Answer Note LastModified by Xetal Details LastModified Time What is your level of alcohol consumption? 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 Family History Relationship Description Onset Age of this Age Resolved Age Notes LastModified by Organization Details LastModified Time Mother Hypothyroidi sm amelendez Not available 2016 10:40:01 Father Spinal stenosis Deaf since amelendez Not available 09/17/2016 10:40:49 Maternal Grandmother Diabetes mellitus amelendez Not available 2016 10:41:04 Medical History Condition Response Diabetes N Other N Thyroid Disease N High Blood Pressure N Lung Disorder or Asthma N Hyperlipidemia N Cancer N Kidney or Bladder Problems N Anemia or Blood Disorder N Cardiac Disease N GI Disorders N Neurologic Disease N None Reported N Psychiatric Disease N Osteoporosis N Thrombophilias N Gynecological History Statement/Question Response Menstrual Regularity Regular Current control method None Date of Last Pap 2016 Sexual Activity Yes Date of LMP 08/28/2016 Abnormal Pap None STD History Obstetrics History GPAL:G 1 P 0 0 0 0 Past Encounters Encounter ID Performer Location Encounter Start Date Encounter Closed Date Diagnosis/Indication Diagnosis SNOMED-CT Code Diagnosis ICD10 Code Diagnosis Note [id number] Aguila Valenzuela MD [facility] [address] [place] [address] 03/01/2008 15:16:15 03/02/2008 15:16:34 [id number] Yamilex Pascal MD [place] [address] 2 09/17/2016 10:20:53 09/18/2016 13:15:47 Deficient knowledge of preconception health practices 204231303 Z76.89 [id number] Linda Santizo NP [place] [address] 2 10/25/2016 08:40:32 10/29/2016 17:40:27 Routine care 329057654 Z34.01 [id number] Linda Santizo NP [address] [address] 11/08/2016 15:50:27 11/14/2016 08:18:58 Routine care 676941480 Z34.01 [id number] Z33.1 [id number] Yamilex Pascal MD [address] [address] 11/29/2016 14:01:35 12/03/2016 14:58:56 Routine care 598191503 Z34.01 Health Concerns Section Related Observation LastModified by Organization Detai ls LastModified Time None Recorded Concern Status LastModified by Organization Details LastModified Time None Recorded Advance Directives Directive None Recorded Payers Insurance Date Sequence Insurance Name Policy Number Policy Nathan Covered Member ID Nathan Member ID Guarantor Name 08/14/2016 1 [facility]: [employer] (HMO) [id number] Emily Zuniga [id number] Kristina Zuniga 01/17/2017 2 [facility]: [facility] [place] Zuniga [id number] Kristina Zuniga 01/17/2017 1 [facility]: Zohra TOVAR [id number] Kristina Zuniga [id number] Kristina Zuniga Notes Date Note Type Note Provider Name and Address Organization Details Recorded Time 09/17/2016 text/html Patient presents for preconception visit. She says she has been trying to get since 08/2016. She reports regular periods q28 days. Periods are moderate in flow. She reports a several year long history of not getting periods unless she took KYE. States her mother also had this issues. She has been off KYE for over a year and has had regular periods since then. Reports a history of anorexia/bulimia even up to the past few months. For the past few months she said she has been symptom free except for a few mishaps. Exercise and healthy eating help her stay on track. States that desire to conceive has helped her be healthy and avoid disordered eating habits/behavior. Denies recent weight loss or weight gain. She has stopped drinking any alcohol (used to drink socially) and caffeine. Taking a vitamin. She can tell she ovulates based on breast tenderness, change in cervical mucus. She also uses a period/ovulation tracking davie. Yamilex Pascal MD [address] [facility] [place], [address], [facility] 09/17/2016 12:24:03 OBGyn Episode Ob Episode Information Episode Created Date Number of Fetuses Patient Bloodtype Patient rh Status Prepregnancy Weight lbs Domestic Partner Domestic Partner Phone Father Name Health Education Assistant Status 10/26/19 17 1 O Positive Joseph CLOSED Fetus Data First Name Last Name Admitted to NICU Weight (g) Sex Living Outcome Pediatric Complications Fetus ID Race Codes Race Delivery Type [id number] Problems Problem Notes flu vaccine:TDaP:Hgb electro pheresis: slight increase in Hgb F, WNL for , likely clinically insignificant. Problem Name Start Date End Date Resolution Snomed Code Not e Anorexia nervosa 52172521 History of bulimia nervosa [id number] stopped rest ricting and purging in August 2016 when trying to conceive. Encouraged her to see a therapist Devonte Calculation Initial Devonte Date Initial Exam Date Initial Exam Provider Initial Ultrasound Date Last Menstrual Period Date Ultra Sound Weeks Gestation 06/04/2017 10/25/2016 10/25/2016 08/28/2016 7 Eighteen To Twenty Week Devonte Update Ultra Sound Date Fundal Height At Umbil Quickening Date Ultra Sound Latest Weeks Gestation Final Devonte Confirmed By Final Devonte Confirmed Date Final Devonte Date Ultra Sound Latest Days Gestation 0 [email or web address] 11/08/2016 017 0 Pre-yazan Flowsheet Flowsheet Date 10/25/2016 Santos Score Blood Edema Fundus Height Fundus Units Glucose Ketones Leukocytes Nitrite Labor Signs Protein Cervic Dilation Cervic Effacement Cervic Station Type Weight in lbs Pre/Post Dialysis Refused 116.95268986997 BP Diastolic BP Location Tested BP Systolic BP Type 60 122 Fetus Heart Rate Present Fetus Movement Comments IOB: Here with , Teena hutchison. Feeling well, has vomited only a couple of times, but feeling nauseated frequently. Finds that eating freqently is really helping. Having some pulling discomfort on the sides. Reports rare spotting, first more than 2wks ago, was very small amount and was brown spotting, has happened a few times since, only a slight amount with wiping, notes that all times were after straining. Is finding she is craving carbs and things she didn't used to eat. Discussed eating disorder and effect on . She reports she has been very good about it and has not been restricting intake and not purging. Weight had been down to 100lbs around [place], decided to stop eating disorder behavior in early August and is now back to her usual weight of ~115. Finds the nausea to be confusing due to her h/o bulemia. She is not seeing a therapist, but would be open to it. Recommended she contact [facility] for a referral. Sent for u/s today due to spotting. Pt. states she will be moving to [facility] in 2wks and plans care at [facility]. She will complete first trimester screening here and have one further appt. with Dr. Pascal prior to transfer of care. Exam with pap and routine labs including CF done today. Answered many questions. Reviewed IOB packet and screening options. Will schedule KRYSTA draw and NT u/s. RTO 4wks with Dr. Pascal. *wet read from u/s today shows SIUP 7w5d pole and yolk sac, FHR 168; perigestational bleed 2cm in left uterus and ?second perigestational bleed in lower uterine segment close to cervix. Flowsheet Date 11/08/2016 Santos Score Blood Edema Fundus Height Fundus Units Glucose Ketones Leukocytes Nitrite Labor Signs Protein Cervic Dilation Cervic Effacement Cervic Station Type Weight in lbs Pre/Post Dialysis Refused BP Diastolic BP Location Tested BP Systolic BP Type Fetus Heart Rate Present Fetus Movement Comments Flowsheet Date 11/29/2016 Santos Score Blood Edema Fundus Height Fundus Units Glucose Ketones Leukocytes Nitrite Labor Signs Protein Cervic Dilation Cervic Effacement Cervic Station neg 13 wks none none Negative neg Type Weight in lbs Pre/Post Dialysis Refused 120.355859906556 BP Diastolic BP Location Tested BP Systolic BP Type 78 118 Fetus Heart Rate Present Fetus Movement Comments Denies nausea, vaginal bleed ing. Dated by . Screening: CF neg, ERA scheduled for next week. Discussed SMA screening, patient to consider. Elevated hgbF in hemoglobin electrophoresis. Discussed this may be 2/2 to or other etiology. Will discuss with hematology. We reviewed recommendation for survey at 18-20 weeks. She has already moved to [place]. She has care set up with [facility] service and plans to deliver at [facility]. Reports heart murmur when she was a baby that went away as a child. She states she feels an irregular heartbeat on occasion. I recommended seeing PCP for EKG and consultation. There was no FH heard on exam today despite prolonged attempt at auscultation. Pelvic US showed viable IUP with normal FH and 4.6 cm anterior likely intramural fibroid. I saw the patient after the US to discuss the US results and answer remaining questions. Patient to arrange next appointment a few weeks from now with practice in [place]. Menstrual History Last Menstrual Date Menses Monthly On Bcp Conception Prior Menses Frequency Hcg Plus Date Menarche Onset Age 0108/28/2016 Genetic Screening And Infection History Question Response Note Patient's Age Will Be 35 Yea rs Or Older At Estimated Date of Delivery false Thalassemia (New Zealander, Uzbek, Mediterranean, Or Background): MCV < 80 false Eastern and Western . Both did 23&Me recentlly, this included Ashkenazi panel, all negative Neural Tube Defect (Meningom yelocele, Spina Bifida, Or Anencephaly) false Congenital Heart Defect false Down Syndrome false Kartik-Sachs (eg, Congregational, Cajun , Korean-Parke) false Analisa Disease false Sickle Cell Disease Or Trait () false Hemophilia Or Other Blood Disorders false Muscular Dystrophy false Cystic Fibrosis false [place] false Mental Retardation/Autism false If Yes, Was Person Tested Fo r Fragile X? false Other Inherited Genetic Or Chromosomal Disorder false Maternal Metabolic Disorder (eg, Type 1 Diabetes, PKU) false Patient Or Baby's Father Had A Child With Defects Not Listed Above false Recurrent Loss, Or A Stillbirth false Medications (including Suppl ements, Vitamins, Herbs, OTC Drugs), Illicit/Recreational Drugs, Alcohol false PNV, DHA If Yes, Agent(s) And Strength/Dosage false Any Other Genetic History false Pts fa ther born deaf, likely environmental exposure of his mother. Live With Someone With TB Or Exposed To TB false Patient Or Partner Has Histo ry Of Genital Herpes false Rash Or Viral Illness Since Last Menstrual Period false History Of STD, Gonorrhea, C hlamydia, HPV, Syphilis false Other Infection History true h/o VZV, has a cat, not changing litter. No travel r/t zika. Delivery Information Delivery Date Delivery Type Labor Anesthesia Weeks Gestation Incision Type Labor Labor Length Hrs Delivered By Post Complications Tubal Sterilization Discharge Date Comments Discharge Information Feeding Method Contraceptive Method Maternal HG B and HCT Levels
--- OUTSIDE RECORDS SUMMARY | 2025-02-10 15:10 | XMS_ITS | Data Portability ---
Author Organization [facility], [facility] Address [address] [address] Assessment Encounter Date Assessment Date Assessment LastModified [...] trying. Patient and plan to move to [facility] in the near future. All questions answered. 30 minutes spent, >50% of visit counseling. [email or web address] Not available 09/17/2016 12:23:36 Plan of Treatment Reminders Order Date Submit Date Provider Last Modified By Organization Details Last Modified Time Details Appointments None recorded. Lab maternal screen, first trimester , serum or plasma - KRYSTA 2016 017 [facility] (Lab), [address] [facility], [place], [address], 7 16:43:59 CBC 2016 017 [facility] (Lab), [address] [place] [address], [address], 7 16:47:43 rubella igg Ab screen, serum 2016 017 [facility] (Lab), [address] [place] [address], [address], 7 17:55:15 RPR (rapid plasma reagin), serum 2016 017 [facility] (Lab), [address] [place] [address], [address], 7 06:36:00 HBsAg (hepatiti s B surface Ag), serum 2016 017 [facility] (Lab), [address] [place] [address], [address], 7 17:46:48 CT, DNA, qual, PCR, unspecifi ed specimen 2016 017 [facility] (Lab), [address] [place] [address], [address], 7 10:40:37 NG, DNA, qual, PCR, unspecifi ed specimen 2016 017 [facility] (Lab), [address] [place] [address], [address], 7 10:40:38 Pap test, slide(s), cervical 2016 017 [facility] (Lab), [address] [place] [address], [address], 7 12:47:01 urinalysi s, complete 2016 017 [facility] (Lab), [address] [place] [address], [address], 7 22:31:37 culture, urine 2016 017 [facility] (Lab), [address] [place] [address], [address], 7 07:01:50 HIV (1+2) antibodie s, EIA, serum, reflex HIV-1 western blot (WB) 2016 017 [email or web address] [facility] (Lab), [address] [place] [address], [address], 7 08:46:58 cf (cystic fibrosis) profile 2016 017 [facility] (Lab), [address] [place] [address], [address], 7 07:29:51 abo group + rh type, blood 2016 017 [facility] (Lab), [address] [place] [address], [address], 7 16:56:17 antibody screen, serum or plasma 2016 017 [facility] (Lab), [address] [place] [address], [address], 7 16:56:17 HPV DNA, high-risk 2016 017 [facility] (Lab), [address] [place] [address], [address], 7 14:34:27 hemoglobi nopathy profile, blood 2016 017 [facility] (Lab), [address] [place] [address], [address], 7 17:47:56 vzv (varicell a-zoster) Ab, serum 2016 017 [facility] (Lab), [address] [place] [address], [address], 7 15:41:21 Referral None recorded. Procedures None recorded. Surgeries None recorded. Imaging US, obstetric - unable to hear heartbeat in office 2016 017 [email or web address] [facility] (Same Day Appointment - Imaging), [address] [place] [address], [address], 7 14:58:56 US, obstetric , nuchal transluce ncy 2016 017 [email or web address] Not available 7 16:46:32 US, obstetric , limited - Viability and dating please. Vaginal bleeding/ spotting in . 2016 017 [email or web address] [facility] (Same Day Appointment - Imaging), [address] [place] [address], [address], 7 17:40:27 Medication Orders None recorded. Patient TargetsNo targets recorded. Patient Instructions Encounter Date Encounter Id Patient Instructions Last Modified By Organization Details Last Modified Time 10/25/2016 [id number] educational handout [email or web address] Not available 10/25/2016 11:39:16 Reason for Referral None Reported. Results Created Date Observation Date Name Description Value Unit Range Abnormal Flag Note LastModifiedBy Organization Detail LastModifiedTime 10/26/19 17 10/25/2016 CBC WBC 5.97 10(9) /L 4.0-10 .80 normal Not Available [address], [address], 10/25/2016 16:47:43 10/26/1910/25/2016 CBC RBC 4.03 10(12 )/L 4.20-5 .40 low Not Available [address], [address], 10/25/2016 16:47:43 10/26/19 17 10/25/2016 CBC HGB 13.0 g/dL 12.0-1 6.0 normal Not Available [address], [address], 10/25/2016 16:47:43 10/26/19 17 10/25/2016 CBC HCT 38.2 % 35-48 normal Not Available [address], [address], 10/25/2016 16:47:43 10/26/19 17 10/25/2016 CBC MCV 94.8 fL 81-99 normal Not Available [address], [address], 10/25/2016 16:47:43 10/26/19 17 10/25/2016 CBC MCH 32.3 pg 26.0-3 3.0 normal Not Available [address], [address], 10/25/2016 16:47:43 10/26/19 17 10/25/2016 CBC MCHC 34.0 g/dL 32.0-3 6.0 normal Not Available [address], [address], 10/25/2016 16:47:43 10/26/19 17 10/25/2016 CBC platelet 183 10(9) /L 150-35 0 normal Not Available [address], [address], 10/25/2016 16:47:43 10/26/1910/25/2016 CBC RDW-CV 11.1 % 11.5-1 4.5 low Not Available [address], [address], 10/25/2016 16:47:43 10/26/1910/25/2016 abo group + rh type, blood blood type O normal Not Available [address], [address], 10/25/2016 16:56:17 10/26/19 17 10/25/2016 abo group + rh type, blood Rh status POSITI VE normal Not Available [address], [address], 10/25/2016 16:56:17 10/26/19 17 10/25/2016 antib sylvia scree n, serum or plasm a antibody screen NEGATI VE normal Not Available [address], [address], 10/25/2016 16:56:17 10/26/19 17 10/25/2016 abo group + rh type, blood blood type O normal Not Available [address], [address], 10/25/2016 16:56:18 10/26/19 17 10/25/2016 abo group + rh type, blood Rh status POSITI VE normal Not Available [address], [address], 10/25/2016 16:56:18 10/26/19 17 10/25/2016 HBsAg (hepa titis B surfa ce Ag), serum HBsAg cuauhtemoc Negati ve negati ve normal Not Available [address], [address], 10/25/2016 17:46:48 10/26/19 17 10/25/2016 rubel la igg Ab scree n, serum rubella-R Positi ve negati ve normal Not Available [address], [address], 10/27/2016 15:41:20 10/26/19 17 10/25/2016 urina lysis , compl ete color YELLOW yellow normal Not Available [address], [address], 10/25/2016 22:31:37 10/26/19 17 10/25/2016 urina lysis , compl ete turbidity CLOUDY clear normal Not Available [facility] [address] [place], [address], 10/25/2016 22:31:37 10/26/19 17 10/25/2016 urina lysis , compl ete SG 1.013 1.002- 1.030 normal Not Available [facility] [address] [place], [address], 10/25/2016 22:31:37 10/26/1910/25/2016 urina lysis , compl ete pH 7.0 5-8 normal Not Available [address], [address], 10/25/2016 22:31:37 10/26/19 17 10/25/2016 urina lysis , compl ete albumin NEGATI VE mg/dL negati ve normal Not Available [address], [address], 10/25/2016 22:31:37 10/26/19 17 10/25/2016 urina lysis , compl ete glucose NEGATI VE mg/dL negati ve normal Not Available [facility] [address] [place], [address], 10/25/2016 22:31:37 10/26/19 17 10/25/2016 urina lysis , compl ete ketone NEGATI VE mg/dL negati ve normal Not Available [facility] [address] [place], [address], 10/25/2016 22:31:37 10/26/19 17 10/25/2016 urina lysis , compl ete bile NEGATI VE mg/dL negati ve normal Not Available [address], [address], 10/25/2016 22:31:37 10/26/1910/25/2016 urina lysis , compl ete blood NEGATI VE mg/dL negati ve normal Not Available [address], [address], 10/25/2016 22:31:37 10/26/1910/25/2016 urina lysis , compl ete WBC esterase NEGATI VE brady/u L negati ve normal Not Available [address], [address], 10/25/2016 22:31:37 10/26/1910/25/2016 urina lysis , compl ete nitrite NEGATI VE negati ve normal Not Available [address], [address], 10/25/2016 22:31:37 10/26/1910/25/2016 urina lysis , compl ete WBC 0-5 /hpf 0-5 normal Not Available [address], [address], 10/25/2016 22:31:37 10/26/1910/25/2016 urina lysis , compl ete RBC 0-5 /hpf 0-5 normal Not Available [facility] [address] [place], [address], 10/25/2016 22:31:37 10/26/1910/25/2016 urina lysis , compl ete epith cells NONE /hpf 0-5 normal No cells nor forme d eleme nts seen. No cells nor forme d eleme nts seen. Not Available [address], [address], 10/25/2016 22:31:37 10/26/19 17 10/26/2016 RPR (rapi d plasm a reagi n), serum syphilis serol NON-RE ACTIVE non-re act normal Not Available [facility] [address] [place], [address], 10/27/2016 15:41:19 10/26/19 17 10/26/2016 cultu re, urine urine culture < 50,000 organi sms/ml urogen ital fany Not Available [facility] [address] [place], [address], 10/26/2016 13:39:37 10/26/19 17 10/27/2016 vzv (vari [...] Diagn ostic s [facility], [address] , [place], [place] Eriberto Marcum M.D., Ph.D. , [facility] [phone], CLIA [id number] Not Available [facility] [address] [facility] [facility], [place], [address], 10/27/2016 15:41:20 10/26/19 17 10/27/2016 HIV (1+2) [...] matio n, russ e refer to http: //[facility] catguy n.que stdia gnost ics.c om/fa q/FAQ 106 Not Available [facility] [address] [facility], [place], [address], 10/27/2016 18:21:50 10/26/19 17 10/28/2016 CT, DNA, qual, PCR, unspe cifie d speci men chlamydia Ag NEGATI VE negati ve normal Test perfo rmed by Trans c[employer] javon Ampli ficat ion. Test perfo rmed by Trans c[employer] javon Ampli ficat ion. Not Available [facility] [address] [place], [address], 10/28/2016 10:40:37 10/26/19 17 10/28/2016 NG, DNA, qual, PCR, unspe cifie d speci men N. gonorrhoeae NEGATI VE negati ve normal Test perfo rmed by [employer] jav[employer] Ampli ficat ion. Test perfo rmed by Trans c[employer] javon Ampli ficat ion. Not Available [address], [address], 10/28/2016 10:40:38 10/26/19 17 10/28/2016 hemog lobin opath y profi le, blood RBC 3.96 mill/ uL 3.80-5 .10 normal Not Available [address], [address], 10/28/2016 17:47:56 10/26/19 17 10/28/2016 hemog lobin opath y profi le, blood HGB 13.3 g/dL 11.7-1 5.5 normal Not Available [address], [address], 10/28/2016 17:47:56 10/26/19 17 10/28/2016 hemog lobin opath y profi le, blood HCT 37.9 % 35.0-4 5.0 normal Not Available [address], [address], 10/28/2016 17:47:56 10/26/19 17 10/28/2016 hemog lobin opath y profi le, blood MCV 95.8 fL 80.0-1 00.0 normal Not Available [address], [address], 10/28/2016 17:47:56 10/26/19 17 10/28/2016 hemog lobin opath y profi le, blood MCH 33.5 pg 27.0-3 3.0 high Not Available [address], [address], 10/28/2016 17:47:56 10/26/19 17 10/28/2016 hemog lobin opath y profi le, blood RDW 11.4 % 11.0-1 5.0 normal Not Available [address], [address], 10/28/2016 17:47:56 10/26/19 17 10/28/2016 hemog lobin opath y profi le, blood hgba 94.2 % >96.0 low Not Available [address], [address], 10/28/2016 17:47:56 10/26/19 17 10/28/2016 hemog lobin opath y profi le, blood hemoglobin F 3.1 % <2.0 high Not Available [address], [address], 10/28/2016 17:47:56 10/26/19 17 10/28/2016 hemog lobin opath y profi le, blood hemoglobin A2 2.7 % 1.8-3. 5 normal Not Available [address], [address], 10/28/2016 17:47:56 10/26/19 17 10/28/2016 hemog lobin [...] flakita parveen is russ briggs e call [phone]. Test Perfo rmed by [facility] , [place], [facility], [address] [place], [place] Coralri warner Marcum M.D., Ph.D. , [facility] , CLIA [id number] Not Available [facility] [address] [facility], [place], [address], 10/28/2016 17:47:56 10/26/19 17 10/25/2016 pap, LB + HR HPV cytology patient access representative See Emma ts ----- ----- ----- ----- ----- ----- ----- ----- ----- ----- ----- ----- ----- ----- ----- ----- ----- ----- -- RUN DATE: 11/03 [facility] [place] [address] PAGE 1 RUN TIME: 1246 Speci men Inqui ry RUN USER: DEE CRISTOBAL ----- ----- ----- ----- ----- ----- ----- ----- ----- ----- ----- ----- ----- ----- ----- ----- ----- ----- -- PATIE NT: JOE CASEY 169 LOC: [facility] U #: [id number] AGE/S X: 31/F ROOM: RE10/[address]: Ham Schneider N.P. en : 06/11 BED: DIS: STATU S: REG REF TLOC: ----- ----- ----- ----- ----- ----- ----- ----- ----- ----- ----- ----- ----- ----- ----- ----- ----- ----- -- SPEC #: [id number] RECD: 10/25- 213 STATU S: SOUT REQ #: [id number] WU: 10/25- SUBM DR: Indra cash N.P., Ham en ENTER ED: 10/25- 213 SP TYPE: CYT DOCUMENT EXAMINER OTHR DR: ORDER ED: [facility] HPV SENDO UT, [facility] TPPI SCRN, CYTOT INTRP (89 TISSU ES: [...] -- END OF REPOR T Not Available [address], [address], 11/03/2016 12:47:01 10/26/1911/04/2016 HPV DNA, high- risk HPV 30 neg Negati ve negati ve normal Not Available [facility] [address] [facility], [place], [address], 11/04/2016 14:34:27 10/26/1910/25/2016 pap, LB + HR HPV cytology patient access representative See Commen ts ----- ----- ----- ----- ----- ----- ----- ----- ----- ----- ----- ----- ----- ----- ----- ----- ----- ----- -- RUN DATE: 11/05 [place] [address] PAGE 1 RUN TIME: 1348 Speci men Inqui ry RUN USER: MEDIT ECH ----- ----- ----- ----- ----- ----- ----- ----- ----- ----- ----- ----- ----- ----- ----- ----- ----- ----- -- RUBENE NT: JOE CASEY 169 LOC: [facility] U #: [id number] AGE/S X: 31/F ROOM: RE10/[address]: Ham Schneider N.P. : [birth year] BED: DIS: STATU S: REG REF TLOC: ----- ----- ----- ----- ----- ----- ----- ----- ----- ----- ----- ----- ----- ----- ----- ----- ----- ----- -- SPEC #: [id number] RECD: 10/25- 213 STATU S: SOUT REQ #: [id number] WU: 10/25- SUBM DR: Ham Schneider N.P. ENTER ED: 10/25-2 SP TYPE: CYT DOCUMENT EXAMINER OTHR DR: ORDER ED: CU[facility] HPV SENDO UT, [facility] TPPI SCRN, CYTOT INTRP (89 TISSU ES: [...] rmed using the Aptim a HPV Assay ([employer] Tejal GUSTAFSON CT( CP),G 11/05 1347 ----- ----- ----- ----- ----- ----- ----- ----- ----- ----- ----- ----- ----- ----- ----- ----- ----- ----- -- FINAL DIAGN OSIS NEGAT ZORAIDA FOR INTRA EPITH ELIAL SAMANTHA Eden OR MARIO ALBERTO GARCIA . HPV DNA testi ng for high risk subty pes [facility] and the resul t will be repor javon in an adden dum. Roxy Mejia on, CT( CP) Repor t Elect beatrice post This Pap test was scree rsoa isela using the compu teriz ed ThinP rep Imagi ng Systphil m, then rita edwards and inter pretphil d. REBECCA PARKER ON NEXT PAGE ----- ----- ----- ----- ----- ----- ----- ----- ----- ----- ----- ----- ----- ----- ----- ----- ----- ----- -- RUN DATE: 11/05 [place] [address] PAGE 2 RUN TIME: 1348 Speci men [...] -- END OF REPOR T Not Available [facility] [address] [facility], [place], [address], 11/05/2016 13:49:18 10/26/19 17 10/25/2016 US, obste tric, limit ed No observ ation record ed. [email or web address] [facility] (Same Day Appointment - Imaging) [address] [facility], [place], [address], 11/08/2016 16:00:13 12/03/19 17 12/02/2016 US, obste tric, nucha l trans lucen cy No observ ation record ed. [email or web address] Not Available 2016 16:46:20 12/04/19 17 12/02/2016 US, obste tric No observ ation record ed. [email or web address] Not Available 2016 10:01:08 12/06/19 17 11/29/2016 US, obste tric, 1st trime ster Patien t Name: QUYEN LANDEROS [address] [place] [address] Dr: Park Pascal M.D. REG CLI [address]: Park Pascal M.D. Exam Date/T salvatore: 1456 ------ ------ ------ ------ ------ ------ ------ ------ ------ ------ ------ ------ ------ -- Exam Number : [id number] RESPON SIBLE INTERP RETER: Madiha unger [...] Dictat ed: 2016 7:43 AM Report ID: [id number] Report ed By: Veto Pretty M.D. (R ) Yes [email or web address] [facility] (Radiology) [address] [facility], [place], [address], 12/05/2016 17:39:51 Result Notes None recorded. Problems Name Problem SNOMED Code Status Onset Date Resolution Date Notes Provider Name and Address Organization Details Recorded Time Pregnanc y 40284299 Completed 201612/11/2016 [facility] 7 09:56:32 Anorexia nervosa 51131659 Completed [facility] smith [facility] 7 09:56:29 History of bulimia nervosa 47636481881 9107 Completed stopped restrict ing and purging in August 2016 when trying to conceive . [facility] ed her to see a therapis t Sujatha smith [facility] 7 09:56:29 Problem Notes None recorded. Medical Equipment None Reported. Allergies Allergen ID Allergen Name Allergen Category Reaction Reaction Severity Criticality Documentation Date Start Date Code Code System Note Provider Name and Address Organization Details Recorded Time 642743 Product containin g penicilli n (product) medicatio n rash Not available Not available 09/17/2016 10676 8001 SNOMED Neva smith (Jamie) [facility] 7 10:38:43 079980 amoxicill in medicatio n rash Not available Not available 09/17/2016 723 RxNorm Neva smith (Jamie[facility] 7 10:38:51 170526 adhesive environme nt,medica tion rash Not available Not available 09/17/2016 86312 UNK Neva smith (Jamie[facility] 7 10:38:59 971731 Bactrim medicatio n rash Not available Not available 09/17/2016 99717 9 RxNorm Neva smith (Jamie[facility] 7 10:39:10 Medications Name Sig Start Date Stop Date Status Note LastModified by Organization Details LastModified Time biotin active Not Available Not Availa ble Not Available active Not Available Not Avai lable Not Available Vitals Date Recorded Body weight Body height Body mass index (BMI) Systolic And Diastolic Provider Name and Address Organization Details Last Updated DateTime 09/17/2016 21646.35 g 152.4 cm 21.9 kg/m2 120/70 mm[Hg] Neva Jones (Jamie) [facility] 09/17/2016 10:38:15 Date Recorded Body height Body weight Body mass index (BMI) Systolic And Diastolic Provider Name and Address Organization Details Last Updated DateTime 10/25/2016 152.4 cm 20569.714 92 g 22.7 kg/m2 122/60 mm[Hg] Jesusita Lin [facility] 10/25/2016 08:55:32 Date Recorded Body height Body weight Systolic And Diastolic Provider Name and Address Organization Details Last Updated DateTime 11/29/2016 152.4 cm 99089.0844 g 118/78 mm[Hg] Neva Jones (Jamie) [facility] 11/29/2016 14:21:03 Social History Question Answer Notes LastModified by [employer] Details LastModified Time Tobacco Smoking Status Former Smoker quit 3 years ago Neva smith (Jamie) [facility] 09/17/2016 10:41:30 What Type Of [...] Functional Status Question Answer Note LastModified by [employer] Details LastModified Time What is your level [...] SNOMED-CT Code Diagnosis ICD10 Code Diagnosis Note [id number] Aguila Valenzuela MD [facility] [address] [place] [address] 03/01/2008 15:16:15 03/02/2008 15:16:34 [id number] Yamilex Pascal MD [place] [address] 2 09/17/2016 10:20:53 09/18/2016 13:15:47 Deficient knowledge of preconception health practices 552915798 Z76.89 160877 Linda Santizo NP [place] [address] 2 10/25/2016 08:40:32 10/29/2016 17:40:27 Routine care 998029131 Z34.01 786176 Linda Santizo NP [address] [address] 11/08/2016 15:50:27 11/14/2016 08:18:58 Routine care 237883197 Z34.01 95506865 Z33.1 000518 Yamilex Pascal MD [address] [address] 11/29/2016 14:01:35 12/03/2016 14:58:56 Routine care 347968232 Z34.01 Health Concerns Section Related Observation LastModified by Organization Detai ls LastModified Time None Recorded Concern Status LastModified by Organization Details LastModified Time None Recorded Advance Directives Directive None Recorded Payers Insurance Date Sequence Insurance Name Policy Number Policy Nathan Covered Member ID Nathan Member ID Guarantor Name 08/14/2016 1 [facility] [employer] (HMO) [id number] Emily Zuniga [id number] Kristina Zuniga 01/17/2017 2 [facility]: [facility] [place] Zuniga [id number] Kristina Zuniga 01/17/2017 1 [facility] Zohra TOVAR [id number] Kristina Zuniga [id number] Kristina Zuniga Notes Date Note Type Note [...] period/ovulation tracking davie. Yamilex Pascal MD [address] [facility] [place], [address], [facility] 09/17/2016 12:24:03 OBGyn Episode Ob Episode Information Episode Created Date Number of Fetuses Patient Bloodtype Patient rh Status Prepregnancy Weight lbs Domestic Partner Domestic Partner Phone Father Name [employer] Work[employer] Status 10/26/19 17 1 O Positive Joseph CLOSED Fetus Data First Name Last Name Admitted to NICU Weight (g) Sex Living Outcome Pediatric Complications Fetus ID Race Codes Race Delivery Type [id number] Problems Problem Notes flu vaccine:TDaP:Hgb electro pheresis: slight increase in Hgb F, WNL for , likely clinically insignificant. Problem Name Start Date End Date Resolution Snomed Code Not e Anorexia nervosa 78607940 History of bulimia nervosa 255211928165240 stopped rest ricting and purging in August [...] Type Weight in lbs Pre/Post Dialysis Refused 116.00518168268 BP Diastolic BP Location Tested BP Systolic [...] Weight had been down to 100lbs around [place], decided to stop eating disorder behavior in early August and is now back to her usual weight of ~115. Finds the nausea to be confusing due to her h/o bulemia. She is not seeing a therapist, but would be open to it. Recommended she contact [facility] for a referral. Sent for u/s today due to spotting. Pt. states she will be moving to [facility] in 2wks and plans care at [facility]. She will complete first trimester screening here [...] Type Weight in lbs Pre/Post Dialysis Refused 120.085043306659 BP Diastolic BP Location Tested BP Systolic [...] 18-20 weeks. She has already moved to [place]. She has care set up with 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 Reports heart murmur when she was [...] few weeks from now with practice in [place]. Menstrual History Last Menstrual Date Menses Monthly On Bcp Conception Prior Menses Frequency Hcg Plus Date Menarche Onset Age 0108/28/2016 Genetic Screening And Infection History Question Response Note Patient's Age Will Be 35 Yea rs Or Older At Estimated Date of Delivery false Thalassemia (Algerian, Arabic, Mediterranean, Or Background): MCV < 80 false Eastern and Western . Both did 23&Me recentlly, this included Ashkenazi panel, all negative Neural Tube Defect (Meningom yelocele, Spina Bifida, Or Anencephaly) false Congenital Heart Defect false Down Syndrome false Kartik-Sachs (eg, Zoroastrian, Cajun , Divehi-Windham) false Analisa Disease false Sickle Cell Disease Or Trait () false Hemophilia Or Other Blood Disorders false Muscular Dystrophy false Cystic Fibrosis false [place]'s Chorea false Mental Retardation/Autism false If Yes, [...] Contraceptive Method Maternal HG B and HCT Levels"
[2025-02-10 15:18] LABS: MANUAL DIFF FLAG NO
[2025-02-10 15:20] LABS: Hematocrit 36.0 % (37.0-47.0); Hemoglobin 11.6 g/dl (12.0-16.0); Imm Gran Abs Auto 0.01 X10*3/uL (0.00-0.03); Imm Gran Pct Auto 0.2 % (0.0-0.4); Lymphocytes Absolute Auto 1.5 X10*3/uL (1.2-4.9); Mean Corpuscular HGB Conc 32.2 g/dl (31.0-35.0); Mean Corpuscular Hemoglobin 28.2 pg (27.0-33.0); Mean Corpuscular Volume 87.6 fL (80.0-98.0); NRBC Abs Auto 0.000 X10*3/uL (0.0-0.012); NRBC Pct Auto 0.0 /100WBC (0.0-0.2); Platelet Count 183 X10*3/uL (160-400); Red Blood Count 4.11 X10*6/uL (4.20-5.50); White Blood Count 5.5 X10*3/uL (4.8-10.8)
[2025-02-10 16:23] LABS: Iron 78 mcg/dL (30-160); Percent Iron Saturation 33 % (15-50); Total Iron Binding Capacity 235 mcg/dL (228-428); Unsaturated Iron Binding 157 ug/dL
[2025-02-10 16:31] LABS: Ferritin 8 ng/mL (10-250)
== END 2025-02-10 15:08 | disposition home or self-care (01) ==
LOC: HO.BBR 15:07
PROVIDERS: PCP Physician Assistant; Visit Provider Internal Medicine Medical Oncology
DX: E83.110 Hereditary hemochromatosis (principal)
CPT/HCPCS: 36415; 82728; 83540; 85025

== ENCOUNTER 2025-04-15 10:34 | Outpatient (REF) | payer BC, SELFPAY ==
[2025-04-15 10:44] LABS: MANUAL DIFF FLAG NO
[2025-04-15 10:47] LABS: Hematocrit 39.2 % (37.0-47.0); Hemoglobin 13.3 g/dl (12.0-16.0); Imm Gran Abs Auto 0.01 X10*3/uL (0.00-0.03); Imm Gran Pct Auto 0.2 % (0.0-0.4); Lymphocytes Absolute Auto 1.0 X10*3/uL (1.2-4.9); Mean Corpuscular HGB Conc 33.9 g/dl (31.0-35.0); Mean Corpuscular Hemoglobin 30.1 pg (27.0-33.0); Mean Corpuscular Volume 88.7 fL (80.0-98.0); NRBC Abs Auto 0.000 X10*3/uL (0.0-0.012); NRBC Pct Auto 0.0 /100WBC (0.0-0.2); Platelet Count 194 X10*3/uL (160-400); Red Blood Count 4.42 X10*6/uL (4.20-5.50); White Blood Count 4.1 X10*3/uL (4.8-10.8)
--- OUTSIDE RECORDS SUMMARY | 2025-04-15 11:33 | XMS_ITS | Encounter Summary ---
Author Organization [facility] Address [address] [place] [address] Phone Care Team Providers Care Therapist Physical Name Role Phone Marina Madsen CNM Unavailable Carla Butler NP Unavailable Irma Cross CNM Unavailable Sheron Saleh CNM Unavailable [phone] Gpoi Barrientos MEDICARE NURSE Unavailable Patt Alfaro MD Primary Care Provider Patt Alfaro MD Unavailable Pete Abebe [facility] Primary Care Provider + Dl Bernard MD Unavailable Amena Spicer MD Unavailable Amena Spicer MD Primary Care Provider + Self-Referred, Patient Unavailable Unavailab le Encounter Details Date Type Department Care Team (Late st Contact Info) Description 01/09/2021 Procedure Pass [facility] [address] [place], [place] [id number] Social History Tobacco Use Types Packs/Day Years Used Date Smoking Tobacco: Never Smokeless Tobacco: Never Alcohol Use Standard Drinks/Week Comments Never 0 (1 standard drink = 0.6 oz pur e alcohol) Comments Yes Sex and Gender Information Value Date Recorded Sex Assigned at Female 02/07/2020 1:48 PM EDT Legal Sex Female 9:16 PM EDT Gender Identity Female 02/07/2020 1:48 PM EDT Sexual Orientation Straight 05/27/2024 4: 40 PM EDT 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 Not on file Not on file documented as of this encounter Plan of Treatment Not on file documented as of this encounter Visit Diagnoses Not on filedocumented in this encounter Additional Health Concerns Infection Onset Date Last Indicated Resolved Time CoV-Risk 05/02/2021 05/03/2021 05/12/2021 1:23 AM EDT CoV-Exposed Comment:Recent close contact documented in the COVID-19 PCR/PRO order 07/27/2021 07/31/2021 08/11/2021 1:[address] CoV-Risk Comment:Per Ambulatory Triage Form 07/31/2021 08/01/202108/11 1:22 AM EST CoV-Risk Comment:Per Ambulatory Triage Form 08/21/2021 08/22/202109/01 1:23 AM EST CoV-Exposed Comment:Recent close contact documented in the COVID-19 PCR/PRO order 08/21/2021 08/21/2021 09/05/2021 1:[address] CoV-Presumed 02/23/2022 02/23/2022 03/16/2022 1:21 AM EDT Assessment Noted Time PHQ-2 Depression Total Score: 1 02/07/20 20 2:20 PM EDT documented as of this encounter Care Teams Therapist Physical Relationship Specialty Start Date End Date Patt Alfaro MD [address] [place] [address], [address] [place] [address] [email or web address] PCP - General Family Medicine 08/20/18 07/16/22 Pete Abebe CNP [address] [place] [address], [address] [place] [address] [email or web address] PCP - General Family Medicine 07/17/22 05/26/24 Amena Spicer MD [address] [place] [address] [email or web address] PCP - General Family Medicine 05/27/24 Marina Madsen CNM [address] [place] [address], [address] [address] [email or web address] Historical LMR Provider 05/31/17 Carla Butler NP [address] [place] [address] [email or web address] Historical LMR Provider 05/31/17 08/18/21 Irma Cross CNM [address] [place] [address] [email or web address] Historical LMR Provider 05/31/17 Sheron Saleh CNM [address] [place] [address] [email or web address] Historical LMR Provider 05/31/17 Gopi Barrientos CNP [address] [place] [address], [address] [place] [address] [email or web address] 07/23/17 11/08/24 Patt Alfaro MD [address] [place] [address] [email or web address] Insurance Assigned Provider 08/19/20 02/17/21 Dl Bernard MD [address] [place] [address] [address] [place] [address] [email or web address] Insurance Assigned Provider 02/15/23 09/20/23 Amena Spicer MD [address] [place] [address] [email or web address] Insurance Assigned Provider 11/15/23 Self-Referred, Patient 05/27/24 documented as of this encounter Additional Source Comments The information contained in this document represents components of the legal health record. It is not the complete legal health record.[facility]
--- OUTSIDE RECORDS SUMMARY | 2025-04-15 11:33 | XMS_ITS | Encounter Summary ---
Author Organization [facility] Address [address] [place] [address] Phone Care Team Providers Care Crop Consultant Name Role Phone Marina Madsen CNM Unavailable Carla Butler NP Unavailable Irma Cross CNM Unavailable Sheron Saleh CNM Unavailable [phone] Gopi Barrientos PSYCHOLOGY TECHNICIAN Unavailable Patt Alfaro MD Primary Care Provider Patt Alfaro MD Unavailable Pete Abebe [facility] Primary Care Provider + Dl Bernard MD Unavailable Amena Spicer MD Unavailable [phone] Amena Spicer MD Primary Care Provider + Self-Referred, Patient Unavailable Unavailab le Reason for Referral * Physical Therapy (Routine) - Closed Specialty Diagnoses / Procedures Referred By Liza morris Referred To Contact Physical Therapy Diagnoses Encounter for rehabilitation diastasis recti Patt Alfaro MD Phone: tel: mailto:[email or web address] Phone: tel: Referral ID Status Reason Start Date Expiration Date Visits Re quested Visits Authorized [id number] Closed 04/13/2019 08/10/2019 25 25 Encounter Details Date Type Department Care Team (Latest Contact Info) Description 04/13/2019 Transcribe Orders [facility] [address] [place] [address] Patt Alfaro MD [address] [place] [address] [email or web address] Encounter for rehabilitation (Primary Dx) Social History Tobacco Use Types Packs/Day Years Used Date Smoking Tobacco: Never Smokeless Tobacco: Never Alcohol Use Standard Drinks/Week Comments No 0 (1 standard drink = 0.6 oz pur e alcohol) Comments No Sex and Gender Information Value Date Recorded Sex Assigned at Female 02/07/2020 1:48 PM EDT Legal Sex Female 9:16 PM EDT Gender Identity Female 02/07/2020 1:48 PM EDT Sexual Orientation Straight 05/27/2024 4: 40 PM EDT documented as of this encounter Plan of Treatment Not on file documented as of this encounter Procedures Procedure Name Priority Date/Time Associated Diagnosis Comments AMB REFERRAL TO [facility] PHYSICAL THERAPY Routine 05/06/2019 10:18 AM EDT Encounter for rehabilitation documented in this encounter Results * Ambulatory referral to [facility] Physical Therapy (05/06/2019 10:18 AM EDT) us Patt Alfaro MD AMB [facility] REFERRALS Final Res ult documented in this encounter Visit Diagnoses Diagnosis Encounter for rehabilitation- Primary documented in this encounter Additional Health Concerns Infection Onset Date Last Indicated Resolved Time CoV-Risk 04/04/2020 04/04/2020 04/18/2020 1:23 AM EDT CoV-Exposed Comment:Recent close contact 06/22/2020 06/22/2020 07/06/2020 1:24 AM EST CoV-Exposed Comment:Recent close contact documented in the COVID-19 PCR/PRO order 10/25/2020 10/26/2020 11/09/2020 1:23 AM E DT CoV-Risk 05/02/2021 05/03/2021 05/12/2021 1:23 AM EDT [...] CoV-Presumed 02/23/2022 02/23/2022 03/16/2022 1:21 AM EDT documented as of this encounter Care Teams Crop Consultant Relationship Specialty Start Date End Date Patt Alfaro MD [address] [place] [address], [address] [place] [address] [email or web address] PCP - General Family Medicine 08/20/18 07/16/22 Pete Abebe CNP [address] [place] [address] [address] [place] [address] [email or web address] PCP - General Family Medicine 07/17/22 05/26/24 Amena Spicer MD [address] [place] [address] [email or web address] PCP - General Family Medicine 05/27/24 Marina Madsen CNM [address] [place] [address], [address] [place] [address] [email or web address] Historical LMR Provider 05/31/17 Carla Butler NP [address] [place] [address] [email or web address] Historical LMR Provider 05/31/17 08/18/21 Irma Cross CNM [address] [place] [address], [address] [place] [address] [email or web address] Historical LMR Provider 05/31/17 Sheron Saleh CNM [address] [place] [address], [address] [place] [address] [email or web address] Historical LMR Provider 05/31/17 Gopi Barrientos CNP [address] [place] [address], [address] [place] [address] [email or web address] 07/23/17 11/08/24 Patt Alfaro MD [address] [place] [address] [email or web address] Insurance Assigned Provider 08/19/20 02/17/21 Dl Bernard MD [address] [place] [address] [address] [place] [address] [email or web address] Insurance Assigned Provider 02/15/23 09/20/23 Amena Spicer MD [address] [place] [address] [email or web address] Insurance Assigned Provider 11/15/23 Self-Referred, Patient 05/27/24 documented as of this encounter Additional Source Comments The information contained in this document represents components of the legal health record. It is not the complete legal health record.[facility]
--- OUTSIDE RECORDS SUMMARY | 2025-04-15 11:33 | XMS_ITS | Encounter Summary ---
Author Organization [facility] Address [address] [place] [address] [place] [address] Phone Care Team Providers Care Foley Artist Name Role Phone Marina Madsen CNM Unavailable Irma Cross CNM Unavailable Sheron Saleh CNM Unavailable Gopi Barrientos SECURITY SALES MANAGER Unavailable Amena Spicer MD Unavailable [phone] Amena Spicer MD Primary Care Provider + Self-Referred, Patient Unavailable Unavailab le Encounter Details Date Type Department Care Team (Late st Contact Info) Description 07/06/2024 Transcribe Orders Virtual Department [address] [place] [address] Cele Rueda PA [address] [place], [place] [phone] [email or web address] Amenorrhea, unspecified (Primary Dx) Social History Tobacco Use Types Packs/Day Years Used Date Smoking Tobacco: Never Smokeless Tobacco: Never Alcohol Use Standard Drinks/Week Comments Yes 0 (1 standard drink = 0.6 oz pur e alcohol) socially, twicwe monthly Education Answer Date Recorded Are you interested in more education? Not on pieter e 12/06/2022 Are you concerned about learning? Not on file 12/06/2022 No 12/06/2022 No 12/06/2022 Digital Access Answer Date Recorded No 01/06/2023 No 01/06/2023 Reliable internet access at home? Not on file 01/06/2023 Device with a working camera? Not on file Intimate Partner Violence Answer Date R ecorded Denied Basic Needs Not on file 10/16/2022 In the past 12 months have y ou been in a relationship with a person who hurts, threatens, or tries to control you? No 10/16/2022 Worried food would run out Not on file 10/16 In the past 12 months have y ou been in a relationship with a person who hurts, threatens, or tries to control you? No 10/16/2022 Comments No Sex and Gender Information Value [...] documented as of this encounter Visit Diagnoses Diagnosis Amenorrhea, unspecified- Primary documented in this encounter Additional Health Concerns Assessment Noted Time PHQ-2 Depression Total Score: 0 10/17/19 23 10:07 AM EST documented as of this encounter Care Teams Foley Artist Relationship Specialty Start Date End Date Amena Spicer MD [address] [place] [address] PCP - General Family Medicine 05/27/24 Marina Madsen CNM [facility], [address] [address] Historical LMR Provider 05/31/17 Irma Cross CNM [facility], [address] [address] Historical LMR Provider 05/31/17 Sheron Saleh CNM [address] [facility], [address] [place] [address] [email or web address] Historical LMR Provider 05/31/17 Gopi Barrientos CNP [address] [facility], [address] [place] [address] 07/23/17 11/08/24 Amena Spicer MD [address] [place] [address] [email or web address] Insurance Assigned Provider 11/15/23 Self-Referred, Patient 05/27/24 documented as of this encounter Additional Source Comments The information contained in this document represents components of the legal health record. It is not the complete legal health record.[facility]
--- OUTSIDE RECORDS SUMMARY | 2025-04-15 11:34 | XMS_ITS | Clinical Summary ---
Author Organization [facility] Address [address] [place] [id number] Phone Care Team Providers Care Sales Recruitment Specialist Name Role Phone Marina Madsen CNM Unavailable Irma Cross CNM Unavailable Sheron Saleh CNM Unavailable [phone] Amena Spicer MD Unavailable [phone] Amena Spicer MD Primary Care Provider + Self-Referred, Patient Unavailable Unavailab le Allergies Active Allergy Reactions Criticality Noted Date Comments Adhesive Rash Low Amoxicillin 07/15/2017 Penicillins Rash Low 07/15/2017 Sulfamethoxazole-Trimethoprim Rash Low 2016 Medications cetirizine HCl (ZYRTEC ORAL) Take by mouth. Active clindamycin (CLEOCIN T) 1 % lotion APPLY 1-2 TIMES DAILY TO AFFECTED AREAS OF FACE 09/11/2022 Active Active Problems Problem Noted Date Diagnosed Date Irregular menstrual bleeding 05/21/2023 Assessment & Plan (05/21/2023 12:06 PM EDT): -Will repeat CBC and TSH -Pelvic US to r/o any structural causes -Discussed body and hormonal changes as we age. -Advised on perimenopausal s/sx and average age for that -Recommended scheduling a f/u visit w/ after bloodwork and US Acute cystitis without hematuria 03/04/2023 Assessment & Plan (03/04/2023 3:17 PM EDT): I diagnosed Linden with a UTI and treated her with Macrobid today-I reviewed her urinalysis today in the office. I gave guidance. She will drink plenty water. She will call if there are any other issues or concerns. She understands and agrees. Chronic TMJ pain 03/04/2023 Assessment & Plan (03/04/2023 3:17 PM EDT): Linden was diagnosed with chronic left TMJ pain and I put a referral into physical therapy at her request. She was appreciative. I advised her to avoid anything hard or chewy as this might make her symptoms worse. She will call if there are any other issues or concerns. Encounter to establish care 10/21/2022 Assessment & Plan (10/21/2022 8:54 AM EDT): Has been in good health. No care gaps to address today. Will run TSH per her request. Urinary dysfunction 10/21/2022 Assessment & Plan (10/21/2022 8:56 AM EDT): Has been having difficulty starting to void since . Advised to consistently to pelvic floor PT, she has exercises from previous PT. Will follow up as needed for continued symptoms. Diastasis recti 04/26/2021 Assessment & Plan (04/26/2021 3:02 PM EDT): Referred for PT Cellulitis of toe of right foot 04/13/2021 Assessment & Plan (04/13/2021 5:29 PM EDT): Linden was diagnosed with cellulitis of the right big toe and I treated her with clindamycin today-1 tablet 3 times a day for 10 days. She is breast-feeding and she is allergic to penicillin as well as sulfa thus I chose clindamycin. She will continue with the Epson salt soaks as well as ibuprofen and Tylenol as needed. Lastly, I wrote a prescription for podiatry for a consult down the road-once this is cleared -to evaluate for the possibility of an ingrowing nail causing this. She will call if this gets worse or if this changes. She understands and agrees to the plan. Perineal pain 03/29/2021 Overview (03/29/2021): After second degree laceration with Assessment & Plan (04/26/2021 3:02 PM EDT): Feeling better, occasionally occurs with certain positions Recommended calling back if does not resolve over next 2 weeks state 03/15/2021 Anxiety 11/28/2020 Overview (01/23/2021): Reports more labile mood this Has a therapist Plan close monitoring for PPD Assessment & Plan (01/23/2021 1:30 PM EDT): Linden reports labile moods this . Feeling generally weepy at both happy and sad things. Had a night a couple weeks ago when she didn't sleep, and she felt worse physically the next day. The combo caused deeper lows and bouts of crying for a couple days. In general, she is coping with her day-to-day stressors more. Continues therapy. Partner more supportive of her needs. She (and we) will be on the lookout for worsening sx, decreasing efficacy of coping strategies, and increased r/o PPD and restrategize at that point. Assessment & Plan (11/28/2020 3:35 PM EDT): Linden is reporting increased anxiety during this , somewhat related to her last, precipitous , and partly from the miscarriage she had in between and the bleeding early in this . She is also nervous about having PPD since this has been so different from the first one. Recommended the [facility] to discuss these concerns. She will reach out if she can't get in with them. Palpitations 10/30/2020 Assessment & Plan (10/30/2020 10:52 AM EDT): These are quite bothersome to her hopefully they just turned out to be PACs and PVCs I have ordered a 2-week loop monitor Penicillin allergy 09/09/2020 Overview (09/09/2020): GBS with sensitivities History of cardiac murmur 08/07/2020 Overview (02/13/2021): Pt states she had a heart murmur in childhood that resolved with time. No history of maternal structural cardiac abnormalities. Plan an echo and L2 Has seen [place] cardiology (notes in epic) 11/02/[address] Davila. He has met with Linden who states she saw cardiology and they do not suspect current cardiac issue or h/o congenital heart issue for her. She has an echo scheduled for herself and Dr Davila feels that if that is normal, she does not need a echo. Linden agrees with this. He will follow up with her if her echo is abnormal 02/09 ECHO normal Assessment & Plan (10/06/2020 5:06 PM EST): Heart murmur appreciated on exam today. Also complaining of heart palpitations. Cardiology referral placed. Visit with Dr. Hawkins's for echo intake scheduled for 10/17. Assessment & Plan (09/09/2020 11:56 AM EST): Discussed today, will schedule Level 2 and echo at 18-20 weeks Thrombocytopenia 03/20/2018 Overview (02/08/2021): In previous preg- No action taken 12/18/20 122 - repeat in 4 weeks 02/08/21 123 - repeat in 4 weeks Plt 100-150k repeat q 4 wks Repeat more frequently if close to 100 near term If < 100K consider ITP and heme consult Assessment & Plan (10/21/2022 8:55 AM EDT): Dos have easy bruising. History of thrombocytopenia in . CBC to assess today. Assessment & Plan (02/07/2021 12:18 PM EDT): Pt will go for CBC today. Assessment & Plan (01/23/2021 12:15 PM EDT): Rpt CBC ordered today and pt advise to go to lab. Assessment & Plan (01/08/2021 11:21 AM EDT): Repeat CBC ordered for beginning of January Resolved Problems Problem Noted Date Diagnosed Date Resolved Date Normal intrauterine , antepartum 03/13/2021 03/15/2021 Encounter for elective induction of labor 03/13/2021 03/15/2021 Overview (03/13/2021): 03/13/21 0900: VE 2/50/-1 Assessment & Plan (03/13/2021 9:14 AM EDT): -Admit to CBC -Admission labs ordered -Pt consented to COVID testing -Int monitoring for now -Reactive NST -Discussed w pt, options for next steps. We reviewed that labor induction is a slow process and can take time to produce effective contractions. Depending on a person's body the induction process can take 1-5 or more days. It is unclear whether or not induction increases the risk of . We discussed: Cervadil; cervadil is a prostaglandin that is embedded in a string. It is placed in the vagina for 12 hours to cause cervical softening or ripening. The advantages are that it is gentle, unless clinically indicated the patient does not need an IV or to be continuously monitored. It can also be removed if it causes too many contractions. The disadvantages are that sometimes it has minimal effects. Balloon: the advantages are that it can progress dilation to 4-5cm, is relatively gentle over the 12 hours, do not need an IV or to be continuously monitored. Disadvantages are that it can be crampy, uncomfortable during insertion, and even though may be 4-5cm, does not necessarily mean that labor will begin. Misoprostol: can be given orally or vaginally every 4+ hours. Advantages are that it is a prostaglandin and helpful with cervical ripening. Also would not need an IV. Disadvantages are that if it produces too frequent contractions, the medication cannot be turned off , therefore she would need to be monitored continuously and subsequent doses are administered according to strict criteria. Pitocin: Is administered via an IV pump where the dose is increased every 30 minutes. The advantages are that it is very closely controlled and can be stopped easily. The disadvantages are that it is not as effective when the cervix is less ripe. We disc that pitocin and the balloon can be used together. After VE, The patient and I have have discussed these options a will proceed with AROM then re-eval as indicated. Will reassess need for pitocin as needed Murmur, cardiac 10/30/2020 02/27/2021 Assessment & Plan (01/23/2021 1:31 PM EDT): Pt experiencing SOB, lightheadedness, nausea. Recommended increased hydration, snacking frequently, and adequate rest. Planning Echo. Assessment & Plan (01/08/2021 11:22 AM EDT): Pt reports that she did not do Echo due to insurance issue but that she spoke with Dr Salas and he felt it was not necessary. Will review at HR to see if team thinks we should re-order. She is open to doing it know if needed Assessment & Plan (10/30/2020 10:51 AM EDT): As mentioned this is probably going to turn laster to be a flow murmur I have ordered her an echocardiogram to evaluate this. Spotting affecting in second trimester 09/15/2020 01/08/2021 Overview (11/28/2020): 09/27/20: US confirms no previa, small bleed noted at inferior edge with rec for follow up at anatomy scan Resolved on anatomy scan Assessment & Plan (10/06/2020 5:07 PM EST): No further bleeding since 09/24 Assessment & Plan (09/26/2020 3:48 PM EST): Pt seen again in ER on 09/25/20 for vaginal bleeding: states woke up and passed tangerine-sized clot and noticed blood on her legs. US in ER showed viable IUP S=D, I reviewed the images and cannot appreciate a detailed view of the placenta. She denies recent intercourse, notes was climbing up snow piles over the weekend and wonders if that was related. Provided reassurance: I do not think her physical activity is related to this bleeding nor do I recommend bedrest. Recommend US in our office to assess placental location (ddx includes subchorionic bleed and previa). Will follow up when imaging is completed. Reviewed bleeding precautions. Rh positive. Assessment & Plan (09/15/2020 9:51 AM EST): Linden presents today for evaluation of spotting. She had some brown discharge when she wiped this morning after voiding. She has not had spotting on her underwear. Only when she wipes. No cramping. Had a sharp internal abdominal pain in her RLQ last night. No pain this morning. Has had increased discharge since began. Normal pelvic exam on Friday of last week. No recent intercourse. Has had some constipation. This is normal for her but a little worse during the . Does have to strain to have a bowel movement some times. Normal heart rate today. Discussed possible causes of spotting. Recommended thinking about a stool softener. She will look into that. Will call if develops cramping or red bleeding. Advanced maternal age in [facility], first trimester 09/09/2020 03/23/2021 Overview (10/31/2020): AMA age >35 o Risks of aneuploidy discussed w patient. o Offered - Offer cell free DNA - neg - Level 2 - accepts, no anomalies seen Assessment & Plan (10/06/2020 5:06 PM EST): Level 2 scheduled for 10/31 Assessment & Plan (09/09/2020 11:59 AM EST): Reviewed negative cfDNA. Supervision of high risk pre gnancy in second trimester 08/07/2020 03/15/2021 Overview (02/26/2021): 32 week chart review done CNM OB-CMI = 1 [09/09/20] Rh pos GC/Chlam 01/24/21 Neg PAP 09/08/20 NIL Tdap 01/23/21 Flu * Hgb 12.2 GTT 103 28 wk Repeat RPR NR GBS neg PPBC fertility awareness screening cfDNA neg Assessment & Plan (03/06/2021 12:53 PM EDT): Linden is doing okay today. No vb, lof. Some BH ctx. Good fm. Her pelvic pain has improved with the Cradle. She is feeling very anxious her baby getting enough oxygen. A week ago her son started experiencing some congestion and coughing. He had a negative COVID test. Yesterday Linden developed similar symptoms - states it feels like a tickle in her throat. Has been vaccinated and is not particularly worried about COVID, but recent moderate air quality has concerned her. Reassured pt that since she is able to talk in full sentences and walk without feeling short of breath, we are not concerned about her oxygen levels. Reassured pt that normal movement is a very good indicator of baby's good health. Pt states she has a lot of fear surrounding respiratory health because her son had RSV and spent time in the NICU. Linden was also placed on oxygen herself during labor which scared her because she did not understand why. She reports feeling like the mask was suffocating her. Explained to pt that in the past, oxygen was common practice in the event of FHR decels, but studies have shown it does not make a difference. She may decline oxygen in labor if she wishes. Pt has induction scheduled for 03/13, so she will present to [facility] then! GLADIS Maxwell Assessment & Plan (02/27/2021 12:09 PM EDT): Linden is doing well, no OB concerns. Cradle has helped with back and pelvic pain. Reviewed GBS neg. +FM. Denies LOF, VB, UCs. Reviewed FM, PEC, and labor precautions. NV in one week. Has IOL scheduled. Assessment & Plan (02/20/2021 5:12 PM EDT): Linden is doing okay. No lof, vb. Good fm. She is having a lot of discomfort, beginning on 02/16 when she went [facility]. Describes constant Lucian Garcia that have recently become more painful. Pain is low, mostly on the right side of her pelvis, sometimes radiating around to her lower back. It intensifies at times, but never goes away entirely. It often stops her in her tracks. Most intense when she is standing upright, just sitting down, or getting out of the car. She is anxious because of her history of precipitous delivery. I don't really know what contractions feel like. Reports intense relief after spending time in the pool recently, although pain came back stronger when she got out of the pool. Feels relief in certain positions. Discussed that since position impacts pain level, origin is likely musculoskeletal. Highly recommended Cradle for support. Recommended heat, and spending more time in the water to relieve pressure. GBS done today, sent with sensitivities. Discussed control - pt opts for natural family planning. Pt eager to go ahead with scheduling IOL at 39 weeks. Opts for 03/13/21 at 7:30 AM. Pt to return for routine visit in 1 week. GLADSI Maxwell Assessment & Plan (02/07/2021 12:20 PM EDT): Linden is doing well. States SOB, dizziness sensations better and now having lower pressure and sciatica. Feeling some anxiety about possibility of PTL or and is relying on the plan for IOL at 39 weeks. Offered anticipatory guidance and reviewed warning signs. Discussed GBS for NV. +FM. Denies LOF, VB, UCs. Reviewed FM, PTL, PEC, and labor precautions. NV in 2 wks. Assessment & Plan (01/23/2021 1:31 PM EDT): Linden is doing well. See above for physical and emotional experiences. Routine Syphilis ordered today d/t not done at 28 wks. GC/C and TDaP today. +FM. Denies LOF, VB, UCs. Reviewed FM, PTL, PEC, and labor precautions. NV in two weeks. Assessment & Plan (01/08/2021 11:34 AM EDT): Linden is here doing well. Denies VB/LOF/Ctxs. + FM. Reviewed normal GTT/CBC other than plt 122 (see other problem on list) Assessment & Plan (11/28/2020 3:39 PM EDT): Linden is feeling well overall. Reassured by the general health of the baby and . She got her second COVID vaccine. Answered questions about weight gain (which has been normal so far) and ways of monitoring growth. Discussed second trimester lab work which she will do before her NV in one month. Warning signs reviewed. Assessment & Plan (11/05/2020 10:26 AM EDT): Linden is doing well, feeling movement. Fatigue hasn't improved much from first trimester. Anatomy scan was done earlier in the week, all views wnl. Linden is starting a [employer] project- toxoplasmosis IgG/IgM ordered. Assessment & Plan (10/30/2020 10:52 AM EDT): Hopefully her second goes well which it should Assessment & Plan (10/06/2020 5:08 PM EST): Linden is feeling well. So relieved not to have had any bleeding since last episode on 09/24. Not yet feeling movement. Is feeling cold all the time. Has family history of hypothyroid. Would like TSH level drawn. Ordered. Assessment & Plan (09/09/2020 12:03 PM EST): Linden is a 35o at 12 4/7 weeks presenting for first OB visit. Feeling well. Has had early OB labs drawn, reviewed all normal. Unsure of last pap, thinks at least four years ago. Many questions today, all answered. Has been feeling cold recently. Had hair loss in March, none since. Offered to check thyoid lab, Linden declines. PE and pap done today, see note thyroid not enlarged. Flu shot given. Will send referral for level 2 and echo. SARIKA in four weeks. History of precipitous delivery 08/07/2020 03/23/2021 Overview (02/07/2021): UCs within 5 mins of SROM born 2h after first contraction, MLE 11/05 Pt offered IOL or PCS - continue to discuss 01/04 Leaning towards IOL at 39 weeks, continue to review 01/29 Planning 39 wk IOL Assessment & Plan (02/07/2021 12:19 PM EDT): Still planning 39 wk IOL Assessment & Plan (01/08/2021 11:34 AM EDT): Long discussion of last , I was there with her. in 2017, was in old system, could not pull full records from review. We discussed Linden's recollection of the - very precipitous after SROM. Came in and was fully dilated and the baby was having decels. Pt interpreted it as baby's heart stopping. Episiotomy and Vacuum assist done and baby came out just after episiotomy. Support given around the stress that these events can cause. We discussed Precipitous , that this can be recurrent. With distress this is something that may or may not happen again. We discussed the interventions that were done vacuum and episiotomy were done to expedite delivery and that was chosen over as it can often be quicker to do those things if the baby is close. We discussed that it can be hard to predict ahead of time which babies may have distress and we talked about how we have a full team present (OB, anesthesia, pedi, tech) when someone is in active labor in case of issues. We talked about how induction of labor can help for her to be in house for the whole process instead of being concerned about delivery en route. She is leaning towards this. She asked about an early episiotomy - I reviewed this is not helpful until the baby is . We discussed watching for early signs of labor and coming in for those, but we did discuss we cannot usually induce prior to the 39 week point if someone is not in labor or has a medical indication because of concern of causing baby not being totally ready. I will attempt to pull records from old system and review with Linden once I can fully review. Assessment & Plan (11/28/2020 3:37 PM EDT): Discussed Linden's concerns with this again. She would like to have a visit with AW, who was at her last , to recap and discuss options. She has previously briefly discussed the options of expectant management vs IOL vs PCS and would like to learn more about the r/b. Assessment & Plan (11/05/2020 10:16 AM EDT): Linden has a lot of anxiety/fear related to her last . [place] out of control and like there were no breaks in between her contractions. We discussed scheduling an induction to avoid precipitous labor at home. Also briefly discussed possibility of primary . Linden would like to continue discussing at upcoming visits. Will schedule next visit with Samm who was present for Linden's first . Tick bite 03/02/2020 08/02/2020 Assessment & Plan (03/02/2020 8:55 AM EDT): A virtual visit was used during the COVID-[address] of an in-person visit. This real-time interactive virtual clinical encounter was conducted using telephone-only technology from clinic or home office. The patient participated in the visit from home/temporary residence or other location as specified below. Consent for virtual care, including informing the patient that insurance will be billed, and that in-person care is available in case of emergencies or as needed otherwise, was discussed at the time of scheduling. Pt participated in visit from home. Linden states that she has been treated for Lyme disease with antibiotics and has been completed. She would like to get checked for Lyme however as she is trying to get shortly. I put an order in for test and she will get this done today. We will update her with the results. She will call if there is any other issues or concerns. She understands and agrees. Viral URI 10/27/2019 08/02/2020 Assessment & Plan (10/27/2019 10:00 AM EDT): Linden Zuniga presents for a viral URI and she was advised to undergo symptomatic treatment reviewed in the office today. She was recently treated for strep throat. She does not screen in for COVID testing at this time. She will remain quarantined. she will call if this does not improve over the next week. she understands and agrees with this plan. (infant) 07/15/201712/02 Uterine contractions during 03/15/2021 Immunizations Immunization Administration Dates Next Due COVID-19 (Pre-06/02) Pfizer Vaccine, mRNA, PF 11/25/2020,11/02/2020 INFLUENZA, SPLIT VIRUS, TRIV ALENT W/ PRESERVATIVE IM 06/12/2016,06/14/2015,06/08/2014 Influenza Quadrivalent MDCK Preservative Free IM 05/30/2022 Influenza Quadrivalent Preservative Free IM 02/2020,08/24/2018,05/15/2017 Influenza Quadrivalent w/ Preservative IM 2018 Influenza, Unspecified Formulation 08/24/2018 Tdap 01/23/2021,03/26/2017 Family History Medical History Relation Comments Alcohol abuse Father Hearing loss Father Deaf rubella exp in utero Spinal Stenosis Father Cancer Maternal Grandfather exact type unknown Heart attack Maternal Grandfather Arthritis Mother possible rheumat oid Thyroid disease Mother Leukemia Paternal Grandmother Relation Status Comments Father Alive Maternal Grandfather Maternal Grandmother Alive Mother Alive Paternal Grandfather Paternal Grandmother Son Alive Social History Tobacco Use Types Packs/Day Years Used Date Smoking Tobacco: Never Smokeless Tobacco: Never Tobacco Cessation:Counseling Given: Not Answered Alcohol Use Standard Drinks/Week Comments Yes 0 [...] file Not on file Not on file Last Filed Vital Signs Vital Sign Reading Time Taken Comments Blood Pressure 100/70 05/21/2023 10:12 AM EDT Pulse 79 03/04/2023 2:51 PM EDT Temperature 36.3 C (97.3 F) 03/04/2023 2:51 PM EDT Respiratory Rate 18 10/05/2021 3:39 PM EST Oxygen Saturation 99% 03/04/2023 2:51 PM EDT Inhaled Oxygen Concentration - - Weight 49 kg (108 lb) 05/21/2023 10:12 AM EDT Height 152.4 cm (5') 05/21/2023 10:12 AM EDT Body Mass Index 21.09 05/21/2023 10:12 AM EDT Plan of Treatment Health Maintenance Due Date Last Done Comments PAP SMEAR 09/08/2023 09/08/2020 DEPRESSION SCREENING 10/17/2023 10/16/2022 MAMMOGRAM 2024 INFLUENZA VACCINE (#1) 2025 , 06/17/2020, 05/21/2019, Additional history exists COVID-19 VACCINE (2024- season) 2025 05/30/2022, 07/03/2021, 11/25/2020, Additional history exists Adult Td,Tdap Booster 01/23/2031 01/23/2021, 017 HEPATITIS C SCREENING Completed 06/14/2020, 020 HIV ONE-TIME SCREENING (18-65 YEARS) Completed 06/14/2020 SMOKING STATUS SCREENING (Once After 26 Yrs) Completed 05/21/2023 HEPATITIS A VACCINES Aged Out No long er eligible based on patient's age to complete this topic HIB VACCINES Aged Out No longer eligi ble based on patient's age to complete this topic MENINGOCOCCAL VACCINES (ACWY) Aged Out No longer eligible based on patient's age to complete this topic MENINGOCOCCAL VACCINES (B) Aged Out N o longer eligible based on patient's age to complete this topic PNEUMOCOCCAL VACCINES (0-49 years) Aged Out No longer eligible based on patient's age to complete this topic Medical Devices Not on file Procedures Procedure Name Priority Date/Time Associated Diagnosis Comments PAP TEST Routine 09/08/2020 12:00 AM EST HEPATITIS C ANTIBODY, QUALITATIVE Routine 06/14/2020 4:01 PM EST Encounter for preconception consultation from Last 3 Months or Most Recently Relevant to Health Maintenance Results * Pap Smear (09/08/2020 12:00 AM EST) 09/08/2020 09/12/2020 9:3 3 AM EST Narrative SEE NARRATIVE - 09/15/2020 3:17 [place] [address] Development Associate: Roxy Ponce MD [employer]TER Cytology Report FINAL DIAGNOSIS A. PAP SMEAR (SUREPATH) CE: SPECIMEN ADEQUACY: Satisfactory for evaluation; transformation zone present. INTERPRETATION: NEGATIVE FOR INTRAEPITHELIAL LESION OR MALIGNANCY. Electronically Signed Out By: MELY Olmos(ASCP) The Pap test is a screening test primarily for squamous cancers and precursors and has associated false-negative and false-positive results. New technologies such as liquid-based preparations may decrease but will not eliminate all false-negative results. Regular sampling and follow-up of unexplained clinical signs and symptoms are recommended to minimize false negative results. PROCEDURES/ADDENDA HPV Testing (Requested) Ordered Date: 09/12/2020 A. PAP SMEAR (SUREPATH) CE: Human Papilloma Virus Test Negative for high-risk human papillomavirus types 16, 18, 45 and the Other high risk probe set (Includes 31, 33, 35, 39, 51, 52, 56, 58, 59, 66, 68) by [facility] HR-HPV analysis. Clinical correlation is advised. This HPV test was performed at [facility], [address] [place] [address]. This test has been FDA approved for [facility] cervical cytology specimens. The accuracy and precision of this test for all other specimen sources has been verified in the Cytopathology Laboratory of the [facility] and has not been cleared or approved by the U.S. Food and Drug Administration. Clinical correlation is advised. CLINICAL HISTORY Date of Last Menstrual Period: 06-12-2020 Menstrual History: Other Clinical Conditions: Screening Pap SPECIMEN SOURCE A: PAP SMEAR (SUREPATH) CE Patient Name: LINDEN ZUNIGA. : 1985 (Age: 35) Sex: F Institution: [facility] Location: [facility] Date of Collection: 09/08/2020 Date of Reported: 09/15/2020 15:17 Results to: Juliette Jose Michelle ACOSTA Juliette Anguianonadir CNM CYTOLOGY ORDERABLES Final Res ult Performing Organization Address City/[facility] Co de Phone Number SEE NARRATIVE * Hepatitis C antibody, qualitative (06/14/2020 4:01 PM EST) HCV NON-REACTIV E NON-REACTI VE [facility] Blood 06/14/2020 4:01 PM EST 06/14/2020 4:04 PM EST Marina Madsen CNM LAB BLOOD ORDERABLES Final Resul t Performing Organization Address City/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 03/19/2021 1:51 PM * Full Code (Latest Code Status on File) Date Activated Date Inactivated Comments 03/13/2021 4:00 PM Question Answer Comments Code Status Confirmed With: Patient * Full Code Date Activated Date Inactivated Comments 03/13/2021 9:08 AM 03/13/2021 4:00 PM Question Answer Comments Code Status Confirmed With: Patient Care Teams Sales Recruitment Specialist Relationship Specialty Start Date End Date Amena Spicer MD [address] [place] [id number] PCP - General Family Medicine 05/27/24 Marina Madsen CNM [address] [place] [id number] Historical LMR Provider 05/31/17 Irma Cross CNM [address] [place] [id number] Historical LMR Provider 05/31/17 Sheron Saleh CNM [address] [place] [id number] Historical LMR Provider 05/31/17 Amena Spicer MD [address] [place] [id number] Insurance Assigned Provider 11/15/23 Self-Referred, Patient 05/27/24 Additional Source Comments The information contained in this document represents components of the legal health record. It is not the complete legal health record.[facility]
[2025-04-15 11:38] LABS: Iron 57 mcg/dL (30-160); Percent Iron Saturation 25 % (15-50); Total Iron Binding Capacity 227 mcg/dL (228-428); Unsaturated Iron Binding 170 ug/dL
[2025-04-15 11:45] LABS: Ferritin 8 ng/mL (10-250)
== END 2025-04-15 10:35 | disposition home or self-care (01) ==
LOC: HO.BBR 10:34
PROVIDERS: PCP Physician Assistant; Visit Provider Internal Medicine Medical Oncology
DX: E83.110 Hereditary hemochromatosis (principal)
CPT/HCPCS: 36415; 82728; 83540; 85025